=== PATIENT | female | born 2005 | race Caucasian/White ===

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

== ENCOUNTER 2023-05-25 20:34 | Inpatient (IN) | payer MEDICAID, OTHER ==
[2023-05-25] MEDS ORDERED: ONDANSETRON 4 MG/2 ML VIAL IVP STA (20:54)
[2023-05-25] MEDS ORDERED: SODIUM CHLORIDE 0.9% 1,000 ML IV STA ×2 (20:54→22:08)
[2023-05-25 21:18] LABS: Appearance,Urine Clear (Clear); Bilirubin,Urine Negative (Negative); Blood,Urine Negative (Negative); Color,Urine Light Yellow; Glucose,Urine (UA) Negative (Negative); Ketones,Urine 1+ (Negative); Leukocyte Esterase,Urine Negative (Negative); Nitrite,Urine Negative (Negative); PH, Urine 5.5 (5.0-8.0); Protein,Urine Negative (Negative); Specific Gravity,Urine 1.007 (1.001-1.035); Urobilinogen,Urine <2.0 mg/dL (<2.0)
[2023-05-25 21:46] LABS: Basophils % (A) 0 %; Eosinophils # (A) 0.2 k/uL (0-0.7); Eosinophils % (A) 2 %; HCT 42.4 % (34.0-46.0); HGB 14.3 gm/dL (11.4-16.0); Lymphocytes # (A) 1.3 k/uL (1.0-4.8); Lymphocytes % (A) 17 %; MCH 30.3 pg (25.0-35.0); MCHC 33.7 g/dL (31.0-37.0); MCV 89.8 fL (80.0-100.0); Monocytes # (A) 0.4 k/uL (0-1.0); Monocytes % (A) 5 %; Neutrophils # (A) 5.8 k/uL (1.3-7.7); Neutrophils % (A) 74 %; Platelet Count 244 k/uL (150-450); RBC 4.73 m/uL (3.80-5.40); RDW 13.1 % (11.5-15.5); WBC 7.8 k/uL (4.0-11.0)
--- NOTE | 2023-05-25 21:48 | ED ---
Psych HPI - General Chief Complaint: Psychiatric Symptoms Stated Complaint: Mental Health Time Seen by Provider: 05/25/23 20:36 Source: patient, police, EMS Mode of arrival: EMS - History of Present Illness Initial Comments: Patient is a 17-year-old female who presents the emergency department for suicide attempts. Patient took 24 of her 2 mg Abilify pills around 7:30 PM. States she "just wants someone to care." She also drank a couple shots of Bacardi. She denies other drug use. She denies homicidal ideation. Denies visual or auditory hallucinations. Patient feels nauseous no vomiting. No abdominal pain. No chest pain or shortness of breath. - Related Data Home Medications Medication Instructions Recorded Confirmed ARIPiprazole [Abilify] 2 mg PO DAILY 03/31/22 05/26/23 Cholecalciferol [Vitamin D3 (25 25 mcg PO DAILY 05/25/23 05/26/23 Mcg = 1000 Iu)] Nitrofurantoin Monohyd/M-Cryst 100 mg PO Q12HR 05/25/23 05/26/23 [Macrobid] norethindrone-e.estradioL-iron 1 tab PO DAILY 05/25/23 05/26/23 [Junel Fe 24 Tablet] Allergies Allergy/AdvReac Type Severity Reaction Status Date / Time lamotrigine [From Lamictal] Allergy Swelling Verified 05/26/23 07:12 sertraline [From Zoloft] Allergy Swelling Verified 05/26/23 07:12 Review of Systems ROS Statement: Those systems with pertinent positive or pertinent negative responses have been documented in the HPI. ROS Other: All systems not noted in ROS Statement are negative. Past Medical History Past Medical History: No Reported History History of Any Multi-Drug Resistant Organisms: None Reported Past Surgical History: Section Past Anesthesia/Blood Transfusion Reactions: No Reported Reaction Past Psychological History: Anxiety, Depression Smoking Status: Former smoker Past Alcohol Use History: Occasional Past Drug Use History: None Reported - Past Family History Mother Family Medical History: No Reported History General Exam Limitations: no limitations General appearance: alert, in no apparent distress Respiratory exam: Present: normal lung sounds bilaterally. Absent: respiratory distress, wheezes, rales, rhonchi, stridor Cardiovascular Exam: Present: regular rate, normal rhythm, normal heart sounds. Absent: systolic murmur, diastolic murmur, rubs, gallop, clicks GI/Abdominal exam: Present: soft, normal bowel sounds. Absent: distended, tenderness, guarding, rebound, rigid Neurological exam: Present: alert Psychiatric exam: Present: normal affect, normal mood Skin exam: Present: warm, dry, intact, normal color. Absent: rash Course Vital Signs 05/25/23 05/25/23 05/26/23 20:43 22:58 00:00 Temperature 98.8 F Pulse Rate 88 66 54 L Respiratory 19 17 17 Rate Blood Pressure 157/69 127/79 O2 Sat by Pulse 99 Oximetry 05/26/23 05/26/23 05/26/23 01:00 02:07 04:00 Temperature Pulse Rate 68 Respiratory 17 17 17 Rate Blood Pressure O2 Sat by Pulse Oximetry 05/26/23 05/26/23 05/26/23 04:20 05:30 06:34 Temperature Pulse Rate 67 103 H 68 Respiratory 17 19 Rate Blood Pressure O2 Sat by Pulse Oximetry 05/26/23 05/26/23 06:49 09:00 Temperature 98 F Pulse Rate 64 82 Respiratory 17 18 Rate Blood Pressure 116/56 102/60 O2 Sat by Pulse 96 96 Oximetry Medical Decision Making - Medical Decision Making EKG taken at 20:55, interpreted by myself Sinus rhythm Ventricular rate 79, NV interval 133, QRS duration 94, QTC 374 Was pt. sent in by a medical professional or institution ([facility] Girard, [employer] CONSERVATOR, urgent care, hospital, or detention...) When possible be specific @ -No Did you speak to anyone other than the patient for history (EMS, parent, family, police, friend...)? What history was obtained from this source @ -No Did you review nursing and triage notes (agree or disagree)? Why? @ -I reviewed and agree with nursing and triage notes Were old charts reviewed (outside hosp., previous admission, EMS record, old EKG, old radiological studies, urgent care reports/EKG's, detention records)? Report findings @ -No old charts were reviewed Differential Diagnosis (chest pain, altered mental status, abdominal pain women, abdominal pain men, vaginal bleeding, weakness, fever, dyspnea, syncope, headache, dizziness, GI bleed, back pain, seizure, CVA, palpatations, mental health)? @ -Differential Mental Health Depression, anxiety, bipolar, psychosis, schizophrenia, borderline personality, situational depression, adjustment disorder, behavioral disorder, brain tumor, malingering, substance abuse, encephalopathy, medication reaction, dementia, hypothyroidism, degenerative neurologic disorder, lupus.... This is not meant to be all-inclusive list EKG interpreted by me (3pts min.). @ -As above X-rays interpreted by me (1pt min.). @ -None done CT interpreted by me (1pt min.). @ -None done U/S interpreted by me (1pt. min.). @ -None done What testing was considered but not performed or refused? (CT, X-rays, U/S, labs)? Why? @ -None What meds were considered but not given or refused? Why? @ -None Did you discuss the management of the patient with other professionals (roz ramires ibeba Girard, PA, [employer] CON[employer], lab, RT, psych nurse, social insurance specialist, patient transition specialist, teacher, medical officer, piano case maker)? Give summary @ -No Was smoking cessation discussed for >3mins.? @ -No Was critical care preformed (if so, how long)? @ -No Were there social determinants of health that impacted care today? How? (Homelessness, low income, unemployed, alcoholism, drug addiction, transportation, low edu. Level, literacy, decrease access to med. care, penitentiary, rehab)? @ -No Was there de-escalation of care discussed even if they declined (Discuss DNR or withdrawal of care, Hospice)? DNR status @ -No What co-morbidities impacted this encounter? (DM, HTN, Smoking, COPD, CAD, Cancer, CVA, ARF, Chemo, Hep., AIDS, mental health diagnosis, sleep apnea, morbid obesity)? @ -None Was patient admitted / discharged? Hospital course, mention meds given and route, prescriptions, significant lab abnormalities, going to OR and other pertinent info. @ -Patient presenting for suicide attempt with Abilify. Patient is nontoxic appearing, vitals stable. Labs remarkable for mild anion gap acidosis, bicarbonate 17, anion gap 15, likely related to dehydration. Urinalysis shows 1+ ketones. Serum alcohol is 13. Patient given Zofran IV fluids. Discussed case with poison control-will monitor for tachycardia, hypotension, GI upset, psychosis. Patient evaluated by EPS in traveling clerk if she is medically stable. Patient evaluated by EPS and admitted. Undiagnosed new problem with uncertain prognosis? @ -No Drug Therapy requiring intensive monitoring for toxicity (Heparin, Nitro, Insulin, Cardizem)? @ -No Were any procedures done? @ -No Diagnosis/symptom? @ -suicide attempt, overdose Acute, or Chronic, or Acute on Chronic? @ -acute Uncomplicated (without systemic symptoms) or Complicated (systemic symptoms)? @ -uncomplicated Side effects of treatment? @ -No Exacerbation, Progression, or Severe Exacerbation? @ -No Poses a threat to life or bodily function? How? (Chest pain, [place], [place], pneumonia, PE, COPD, DKA, ARF, appy, cholecystitis, CVA, Diverticulitis, Homicidal, Suicidal, threat to staff... and all critical care pts) @ -No Dr. Foster is my attending - Lab Data Result diagrams: 05/25/23 20:53 05/25/23 20:53 Lab Results 05/25/23 05/25/23 05/25/23 Range/Units 20:53 20:53 20:53 WBC 7.8 (4.0-11.0) k/uL RBC 4.73 (3.80-5.40) m/uL Hgb 14.3 (11.4-16.0) gm/dL Hct 42.4 (34.0-46.0) % MCV 89.8 (80.0-100.0) fL MCH 30.3 (25.0-35.0) pg MCHC 33.7 (31.0-37.0) g/dL RDW 13.1 (11.5-15.5) % Plt Count 244 (150-450) k/uL MPV 8.0 Neutrophils % 74 % Lymphocytes % 17 % Monocytes % 5 % Eosinophils % 2 % Basophils % 0 % Neutrophils # 5.8 (1.3-7.7) k/uL Lymphocytes # 1.3 (1.0-4.8) k/uL Monocytes # 0.4 (0-1.0) k/uL Eosinophils # 0.2 (0-0.7) k/uL Basophils # 0.0 (0-0.2) k/uL Sodium 138 (137-145) mmol/L Potassium 5.0 (3.5-5.1) mmol/L Chloride 106 (98-107) mmol/L Carbon Dioxide 17 L (22-30) mmol/L Anion Gap 15 mmol/L BUN 13 (7-17) mg/dL Creatinine 0.76 (0.52-1.04) mg/dL Est GFR (CKD-EPI)AfAm >90 (>60 ml/min/1.73 sqM) Est GFR (CKD-EPI)NonAf >90 (>60 ml/min/1.73 sqM) Glucose 97 (74-99) mg/dL Plasma Lactic Acid Federico 1.7 (0.7-2.0) mmol/L Calcium 9.7 (8.4-10.2) mg/dL Total Bilirubin 1.4 H (0.2-1.3) mg/dL AST 47 H (14-36) U/L ALT 42 H (4-34) U/L Alkaline Phosphatase 54 (38-126) U/L Total Protein 9.4 H (6.3-8.2) g/dL Albumin 4.9 (3.5-5.0) g/dL Urine Color Urine Appearance (Clear) Urine pH (5.0-8.0) Ur Specific [place] (1.001-1.035) Urine Protein (Negative) Urine Glucose (UA) (Negative) Urine Ketones (Negative) Urine Blood (Negative) Urine Nitrite (Negative) Urine Bilirubin (Negative) Urine Urobilinogen (<2.0) mg/dL Ur Leukocyte Esterase (Negative) Urine HCG, Qual (Not Detectd) Salicylates mg/dL Urine Opiates Screen (NotDetected) Ur Oxycodone Screen (NotDetected) Urine Methadone Screen (NotDetected) Ur Propoxyphene Screen (NotDetected) Acetaminophen ug/mL Ur Barbiturates Screen (NotDetected) U Tricyclic Antidepress (NotDetected) Ur Phencyclidine Scrn (NotDetected) Ur Amphetamines Screen (NotDetected) U Methamphetamines Scrn (NotDetected) U Benzodiazepines Scrn (NotDetected) Urine Cocaine Screen (NotDetected) U Marijuana (THC) Screen (NotDetected) Serum Alcohol 13 mg/dL Coronavirus (PCR) (Not Detectd) 05/25/23 05/25/23 05/25/23 Range/Units 20:53 21:03 21:03 WBC (4.0-11.0) k/uL RBC (3.80-5.40) m/uL Hgb (11.4-16.0) gm/dL Hct (34.0-46.0) % MCV (80.0-100.0) fL MCH (25.0-35.0) pg MCHC (31.0-37.0) g/dL RDW (11.5-15.5) % Plt Count (150-450) k/uL MPV Neutrophils % % Lymphocytes % % Monocytes % % Eosinophils % % Basophils % % Neutrophils # (1.3-7.7) k/uL Lymphocytes # (1.0-4.8) k/uL Monocytes # (0-1.0) k/uL Eosinophils # (0-0.7) k/uL Basophils # (0-0.2) k/uL Sodium (137-145) mmol/L Potassium (3.5-5.1) mmol/L Chloride (98-107) mmol/L Carbon Dioxide (22-30) mmol/L Anion Gap mmol/L BUN (7-17) mg/dL Creatinine (0.52-1.04) mg/dL Est GFR (CKD-EPI)AfAm (>60 ml/min/1.73 sqM) Est GFR (CKD-EPI)NonAf (>60 ml/min/1.73 sqM) Glucose (74-99) mg/dL Plasma Lactic Acid Fedeirco (0.7-2.0) mmol/L Calcium (8.4-10.2) mg/dL Total Bilirubin (0.2-1.3) mg/dL AST (14-36) U/L ALT (4-34) U/L Alkaline Phosphatase (38-126) U/L Total Protein (6.3-8.2) g/dL Albumin (3.5-5.0) g/dL Urine Color Light Yellow Urine Appearance Clear (Clear) Urine pH 5.5 (5.0-8.0) Ur Specific [place] 1.007 (1.001-1.035) Urine Protein Negative (Negative) Urine Glucose (UA) Negative (Negative) Urine Ketones 1+ H (Negative) Urine Blood Negative (Negative) Urine Nitrite Negative (Negative) Urine Bilirubin Negative (Negative) Urine Urobilinogen <2.0 (<2.0) mg/dL Ur Leukocyte Esterase Negative (Negative) Urine HCG, Qual Not Detected (Not Detectd) Salicylates <1.0 mg/dL Urine Opiates Screen Not Detected (NotDetected) Ur Oxycodone Screen Not Detected (NotDetected) Urine Methadone Screen Not Detected (NotDetected) Ur Propoxyphene Screen Not Detected (NotDetected) Acetaminophen <10.0 ug/mL Ur Barbiturates Screen Not Detected (NotDetected) U Tricyclic Antidepress Not Detected (NotDetected) Ur Phencyclidine Scrn Not Detected (NotDetected) Ur Amphetamines Screen Not Detected (NotDetected) U Methamphetamines Scrn Not Detected (NotDetected) U Benzodiazepines Scrn Not Detected (NotDetected) Urine Cocaine Screen Not Detected (NotDetected) U Marijuana (THC) Screen Detected H (NotDetected) Serum Alcohol mg/dL Coronavirus (PCR) (Not Detectd) 05/26/23 Range/Units 06:34 WBC (4.0-11.0) k/uL RBC (3.80-5.40) m/uL Hgb (11.4-16.0) gm/dL Hct (34.0-46.0) % MCV (80.0-100.0) fL MCH (25.0-35.0) pg MCHC (31.0-37.0) g/dL RDW (11.5-15.5) % Plt Count (150-450) k/uL MPV Neutrophils % % Lymphocytes % % Monocytes % % Eosinophils % % Basophils % % Neutrophils # (1.3-7.7) k/uL Lymphocytes # (1.0-4.8) k/uL Monocytes # (0-1.0) k/uL Eosinophils # (0-0.7) k/uL Basophils # (0-0.2) k/uL Sodium (137-145) mmol/L Potassium (3.5-5.1) mmol/L Chloride (98-107) mmol/L Carbon Dioxide (22-30) mmol/L Anion Gap mmol/L BUN (7-17) mg/dL Creatinine (0.52-1.04) mg/dL Est GFR (CKD-EPI)AfAm (>60 ml/min/1.73 sqM) Est GFR (CKD-EPI)NonAf (>60 ml/min/1.73 sqM) Glucose (74-99) mg/dL Plasma Lactic Acid Federico (0.7-2.0) mmol/L Calcium (8.4-10.2) mg/dL Total Bilirubin (0.2-1.3) mg/dL AST (14-36) U/L ALT (4-34) U/L Alkaline Phosphatase (38-126) U/L Total Protein (6.3-8.2) g/dL Albumin (3.5-5.0) g/dL Urine Color Urine Appearance (Clear) Urine pH (5.0-8.0) Ur Specific [place] (1.001-1.035) Urine Protein (Negative) Urine Glucose (UA) (Negative) Urine Ketones (Negative) Urine Blood (Negative) Urine Nitrite (Negative) Urine Bilirubin (Negative) Urine Urobilinogen (<2.0) mg/dL Ur Leukocyte Esterase (Negative) Urine HCG, Qual (Not Detectd) Salicylates mg/dL Urine Opiates Screen (NotDetected) Ur Oxycodone Screen (NotDetected) Urine Methadone Screen (NotDetected) Ur Propoxyphene Screen (NotDetected) Acetaminophen ug/mL Ur Barbiturates Screen (NotDetected) U Tricyclic Antidepress (NotDetected) Ur Phencyclidine Scrn (NotDetected) Ur Amphetamines Screen (NotDetected) U Methamphetamines Scrn (NotDetected) U Benzodiazepines Scrn (NotDetected) Urine Cocaine Screen (NotDetected) U Marijuana (THC) Screen (NotDetected) Serum Alcohol mg/dL Coronavirus (PCR) Not Detected (Not Detectd) Disposition Clinical Impression: Attempted suicide, Overdose Disposition: TRANSFER TO PSYCH HOSP/UNIT Condition: Fair
[2023-05-25 21:52] LABS: Amphetamine Screen,Urine Not Detected (NotDetected); Barbiturate Screen,Urine Not Detected (NotDetected); Benzodiazepines Screen,Urine Not Detected (NotDetected); Cocaine Screen,Urine Not Detected (NotDetected); Methadone Screen, Urine Not Detected (NotDetected); Opiate Screen,Urine Not Detected (NotDetected); Oxycodone Screen, Urine Not Detected (NotDetected); Phencyclidine Screen,Urine Not Detected (NotDetected); Tricyclic Antidepressant,Urine Not Detected (NotDetected); Urn Cannabinoid Scrn Detected (NotDetected)
[2023-05-25 21:52] LABS: ALT 42 U/L (4-34); AST 47 U/L (14-36); African American GFR (CKD) >90 (>60 ml/min/1.73 sqM); Albumin 4.9 g/dL (3.5-5.0); Alcohol 13 mg/dL; Alkaline Phosphatase 54 U/L (38-126); Anion Gap 15 mmol/L; Blood Urea Nitrogen 13 mg/dL (7-17); Calcium 9.7 mg/dL (8.4-10.2); Carbon Dioxide 17 mmol/L (22-30); Chloride 106 mmol/L (98-107); Glucose 97 mg/dL (74-99); Non-African American GFR(CKD) >90 (>60 ml/min/1.73 sqM); Sodium 138 mmol/L (137-145); Total Bilirubin 1.4 mg/dL (0.2-1.3); Total Protein 9.4 g/dL (6.3-8.2)
[2023-05-25 23:14] LABS: Acetaminophen <10.0 ug/mL; Salicylate <1.0 mg/dL
[2023-05-26] MEDS ORDERED: ONDANSETRON 4 MG/2 ML VIAL IVP STA (02:02)
[2023-05-26] MEDS ORDERED: hydrOXYzine HCL 50 MG/ML 1 ML VIAL IM PRN (07:06)
[2023-05-26] MEDS ORDERED: MAG HYDROX/AL HYDROX/SIMETH 30 ML CUP PO PRN (07:06)
[2023-05-26] MEDS ORDERED: MAGNESIUM HYDROXIDE 2,400 MG/30 ML CUP PO PRN (07:06)
[2023-05-26] MEDS ORDERED: ACETAMINOPHEN TAB 325 MG TAB PO PRN (07:06)
[2023-05-26] MEDS: NICOTINE 7MG/24HR PATCH TRANSDERM SCH (09:58)
[2023-05-26] MEDS ORDERED: OLANZapine 10 MG VIAL IM PRN (12:10)
[2023-05-26] MEDS ORDERED: OLANZapine 5 MG TAB PO PRN (12:10)
--- NOTE | 2023-05-26 12:11 | P.HP ---
Psychiatric H&P - . H&P Date: 05/26/23 History & Physical: Allergies Allergy/AdvReac Type Severity Reaction Status Date / Time lamotrigine From Lamictal Allergy Swelling Verified 05/26/23 07:12 sertraline From Zoloft Allergy Swelling Verified 05/26/23 07:12 Vital Signs Temp 96.9 F L 05/26/23 09:27 Pulse 70 05/26/23 09:27 Resp 16 05/26/23 09:27 BP 121/69 05/26/23 09:27 Pulse Ox 99 05/26/23 09:27 FiO2 Intake & Output 05/25/23 05/26/23 05/26/23 18:59 06:59 18:59 Weight 63.503 kg 69.082 kg Laboratory Last Values WBC 7.8 k/uL (4.0-11.0) 05/25/23 20:53 RBC 4.73 m/uL (3.80-5.40) 05/25/23 20:53 Hgb 14.3 gm/dL (11.4-16.0) 05/25/23 20:53 Hct 42.4 % (34.0-46.0) 05/25/23 20:53 MCV 89.8 fL (80.0-100.0) 05/25/23 20:53 MCH 30.3 pg (25.0-35.0) 05/25/23 20:53 MCHC 33.7 g/dL (31.0-37.0) 05/25/23 20:53 RDW 13.1 % (11.5-15.5) 05/25/23 20:53 Plt Count 244 k/uL (150-450) 05/25/23 20:53 MPV 8.0 05/25/23 20:53 Neutrophils % 74 % 05/25/23 20:53 Lymphocytes % 17 % 05/25/23 20:53 Monocytes % 5 % 05/25/23 20:53 Eosinophils % 2 % 05/25/23 20:53 Basophils % 0 % 05/25/23 20:53 Neutrophils # 5.8 k/uL (1.3-7.7) 05/25/23 20:53 Lymphocytes # 1.3 k/uL (1.0-4.8) 05/25/23 20:53 Monocytes # 0.4 k/uL (0-1.0) 05/25/23 20:53 Eosinophils # 0.2 k/uL (0-0.7) 05/25/23 20:53 Basophils # 0.0 k/uL (0-0.2) 05/25/23 20:53 Sodium 138 mmol/L (137-145) 05/25/23 20:53 Potassium 5.0 mmol/L (3.5-5.1) 05/25/23 20:53 Chloride 106 mmol/L (98-107) 05/25/23 20:53 Carbon Dioxide 17 mmol/L (22-30) L 05/25/23 20:53 Anion Gap 15 mmol/L 05/25/23 20:53 BUN 13 mg/dL (7-17) 05/25/23 20:53 Creatinine 0.76 mg/dL (0.52-1.04) 05/25/23 20:53 Est GFR (CKD-EPI)AfAm >90 (>60 ml/min/1.73 sqM) 05/25/23 20:53 Est GFR (CKD-EPI)NonAf >90 (>60 ml/min/1.73 sqM) 05/25/23 20:53 Glucose 97 mg/dL (74-99) 05/25/23 20:53 Plasma Lactic Acid Federico 1.7 mmol/L (0.7-2.0) 05/25/23 20:53 Calcium 9.7 mg/dL (8.4-10.2) 05/25/23 20:53 Total Bilirubin 1.4 mg/dL (0.2-1.3) H 05/25/23 20:53 AST 47 U/L (14-36) H 05/25/23 20:53 ALT 42 U/L (4-34) H 05/25/23 20:53 Alkaline Phosphatase 54 U/L (38-126) 05/25/23 20:53 Total Protein 9.4 g/dL (6.3-8.2) H 05/25/23 20:53 Albumin 4.9 g/dL (3.5-5.0) 05/25/23 20:53 Urine Color Light Yellow 05/25/23 21:03 Urine Appearance Clear (Clear) 05/25/23 21:03 Urine pH 5.5 (5.0-8.0) 05/25/23 21:03 Ur Specific Alderson 1.007 (1.001-1.035) 05/25/23 21:03 Urine Protein Negative (Negative) 05/25/23 21:03 Urine Glucose (UA) Negative (Negative) 05/25/23 21:03 Urine Ketones 1+ (Negative) H 05/25/23 21:03 Urine Blood Negative (Negative) 05/25/23 21:03 Urine Nitrite Negative (Negative) 05/25/23 21:03 Urine Bilirubin Negative (Negative) 05/25/23 21:03 Urine Urobilinogen <2.0 mg/dL (<2.0) 05/25/23 21:03 Ur Leukocyte Esterase Negative (Negative) 05/25/23 21:03 Urine HCG, Qual Not Detected (Not Detectd) 05/25/23 21:03 Salicylates <1.0 mg/dL 05/25/23 20:53 Urine Opiates Screen Not Detected (NotDetected) 05/25/23 21:03 Ur Oxycodone Screen Not Detected (NotDetected) 05/25/23 21:03 Urine Methadone Screen Not Detected (NotDetected) 05/25/23 21:03 Ur Propoxyphene Screen Not Detected (NotDetected) 05/25/23 21:03 Acetaminophen <10.0 ug/mL 05/25/23 20:53 Ur Barbiturates Screen Not Detected (NotDetected) 05/25/23 21:03 U Tricyclic Antidepress Not Detected (NotDetected) 05/25/23 21:03 Ur Phencyclidine Scrn Not Detected (NotDetected) 05/25/23 21:03 Ur Amphetamines Screen Not Detected (NotDetected) 05/25/23 21:03 U Methamphetamines Scrn Not Detected (NotDetected) 05/25/23 21:03 U Benzodiazepines Scrn Not Detected (NotDetected) 05/25/23 21:03 Urine Cocaine Screen Not Detected (NotDetected) 05/25/23 21:03 U Marijuana (THC) Screen Detected (NotDetected) H 05/25/23 21:03 Serum Alcohol 13 mg/dL 05/25/23 20:53 Coronavirus (PCR) Not Detected (Not Detectd) 05/26/23 06:34 05/26/23 11:49 IDENTIFYING DATA: Patient is a 17-year-old female currently has 2 kids, lives with her mother and sister in a house, she is unemployed HPI: Patient presented to the hospital yesterday and was evaluated in the ER after a suicide attempt after an overdose, patient apparently took 24 tablets of her 2 mg Abilify pills at 7:30 PM yesterday. Patient also endorsed drinking shots of alcohol afterwards. Her AST and ALT were mildly elevated, UDS is positive for THC. [facility] writer. She appeared to be fairly depressed and her affect, was reporting anxiety as well. She states that she felt that she was hopeless and worthless. She claims that "nobody cared about me anymore" and states that nobody wants her. She states that she broke up with her boyfriend about 13 days ago as she was arguing a lot with him and there were trying to fix things. She states that she has been lonely since then. Claims that after she overdosed in her home she drank pop and alcohol and "sat there" she states that she detected people in her family and also friends and claims that her mother found her in the bathroom and called 911. She states that her sleep has been poor about 6 hours night, states that her appetite is been on and off. Patient denies any current suicidal or homicidal ideations intent or plan. At this time patient denies any auditory or visual hallucinations. Patient denies any flight of ideas racing thoughts and increased in goal directed behavior. Patient admits to using marijuana daily, cigarettes daily. PAST PSYCHIATRIC HISTORY: Patient states that she has a history of anxiety and a mood disorder. Patient is currently on Abilify 2 mg daily. Patient states that she was previously on Lamictal and Zoloft however had bad reactions to them. Claims that she was hospitalized previously [facility] when she was about 13 years old. Patient denies any psychiatric outpatient follow-up. Claims that she has 2 previous suicide attempts one where she held a knife to her throat and also a previous time when she overdosed. Past Medical History: No Reported History History of Any Multi-Drug Resistant Organisms: None Reported Past Surgical History: Section Past Anesthesia/Blood Transfusion Reactions: No Reported Reaction Past Psychological History: Anxiety, Depression Smoking Status: Former smoker Past Alcohol Use History: Occasional Past Drug Use History: None Reported ALLERGIES: as per EMR CHEMICAL DEPENDENCY HISTORY: as per HPI FAMILY PSYCHIATRIC/SUBSTANCE USE HISTORY: She claims that several family members have mental health problems however did not specify. SOCIAL HISTORY: Patient was born and raised in [facility], she claims that she completed her GED, she is currently unemployed. States that she has 2 kids, lives with her mother and also sister in a house. She states that she is not having any legal history. MENTAL STATUS EXAM: General Appearance: Patient appears to be stated age is alert, directable, and attempts to cooperate. Poor eye contact. Patient appears to have fair hygiene and grooming. Behavior: Patient is seated without any agitated behavior. Timid. Speech: Patient's speech is fluent and nonpressured. Soft tone. Mood/Affect: Patient reports their mood is depressed and anxious, affect is congruent and constricted. Suicidality/Homicidality: Patient denies having any homicidal ideation intent or plan. Denies any suicidal ideations intent or plan Perceptions: Patient denies any visual hallucinations and denies any auditory hallucinations Though content/process: There is no evidence of any delusional thought content and thought process is linear and goal-directed. Focused on her stressors Memory and concentration: AOX3, grossly intact for the purposes of this session. Can spell "WORLD" backwards Judgment and insight: poor STRENGTHS/WEAKNESSES: strength is that patient is resilient. Weakness is that patient has poor judgment and is impulsive INTELLECT: average IMPRESSIONS: Suicide attempt after an overdose of medications Depressive disorder NOS borderline personality disorder cannabis use disorder nicotine dependence PLAN: -Patient is admitted under voluntary status to MHU for stabilization of psychiatric symptoms and safety. Patient has signed adult voluntary form and medication consent and is placed in patient's chart. -Medications : Will start patient on Cymbalta 20 mg daily for mood/anxiety, lithium 150 mg twice a day for mood stabilization/suicidal thoughts. -Zyprexa and Vistaril PRN for agitation/aggression -Patient was counselled on substance abuse and desired to cut back on use -Patient was informed of the risks, benefits and side effects of the medication and patient verbally consented to taking the medications. Patient signed med consent form and was placed in chart. -Internal Medicine consult to perform medical evaluation and physical. -NRT - nicotine patch -SW on board for discharge planning. Encourage patient to participate in groups to work on coping skills. 05/26/23 12:04
[2023-05-26] MEDS: CHOLECALCIFEROL 25 MCG (1000 IU) TABLET PO SCH (12:30)
[2023-05-26] MEDS: DULoxetine HCL 20 MG CAPSULE.DR PO SCH (12:30)
[2023-05-26] MEDS: NITROFURANTOIN MONOHYD/M-CRYST 100 MG CAP PO SCH ×2 (12:30→21:05)
[2023-05-26] MEDS: LITHIUM CARBONATE 150 MG CAP PO SCH ×2 (12:30→21:04)
--- NOTE | 2023-05-26 13:15 | P.MDCNMH ---
History of Present Illness H&P Date: 05/26/23 History of present illness; patient is a 17-year-old lady with past medical hist ory significant for depression presents to ER after a suicidal attempt. Patient tried to end her life by taking 24 tablets of 2 mg of Abilify. Patient a lot of social stressors at home. Denied any auditory or visual hallucinations. Denies any homicidal thoughts. Because of this patient was brought to the ER Initial lab work done in the ER showed WBC 7.8, hemoglobin 40.3, platelet count 244, sodium 1:30, potassium 5, total bilirubin 1.4, AST 47, ALT 42 UA negative for infection Urine drug screen positive for marijuana Patient was admitted to psychiatry service REVIEW OF SYSTEMS: CONSTITUTIONAL: No fever, no malaise, no fatigue. HEENT: No recent visual problems or hearing problems. Denied any sore throat. CARDIOVASCULAR: No chest pain, orthopnea, PND, no palpitations, no syncope. PULMONARY: No shortness of breath, no cough, no hemoptysis. GASTROINTESTINAL: No diarrhea, no nausea, no vomiting, no abdominal pain. NEUROLOGICAL: No headaches, no weakness, no numbness. HEMATOLOGICAL: Denies any bleeding or petechiae. GENITOURINARY: Denies any burning micturition, frequency, or urgency. MUSCULOSKELETAL/RHEUMATOLOGICAL: Denies any joint pain, swelling, or any muscle pain. ENDOCRINE: Denies any polyuria or polydipsia. The rest of the 14-point review of systems is negative. PHYSICAL EXAMINATION: GENERAL: The patient is alert and oriented x3, not in any acute distress. Well developed, well nourished. HEENT: Pupils are round and equally reacting to light. EOMI. No scleral icterus. No conjunctival pallor. Normocephalic, atraumatic. No pharyngeal erythema. No thyromegaly. CARDIOVASCULAR: S1 and S2 present. No murmurs, rubs, or gallops. PULMONARY: Chest is clear to auscultation, no wheezing or crackles. ABDOMEN: Soft, nontender, nondistended, normoactive bowel sounds. No palpable organomegaly. MUSCULOSKELETAL: No joint swelling or deformity. EXTREMITIES: No cyanosis, clubbing, or pedal edema. NEUROLOGICAL: Gross neurological examination did not reveal any focal deficits. SKIN: No rashes. Assessment and plan Suicidal attempt Major depression Borderline personality disorder Cannabis use Elevated LFTs Monitor vital signs Monitor CBC Monitor CMP Trend LFTs Ordered TSH Resume home meds Continue psych meds per psychiatry Labs and medication were reviewed.. Continue same treatment. Continue with symptomatic treatment. Resume home medication. Monitor labs and vitals. DVT and GI prophylaxis. Further recommendations as per clinical course of the patient Dictation was produced using Ryan dictation software. please excuse any grammatical, word or spelling errors. Past Medical History Past Medical History: No Reported History History of Any Multi-Drug Resistant Organisms: None Reported Past Surgical History: Section Past Anesthesia/Blood Transfusion Reactions: No Reported Reaction Past Psychological History: Anxiety, Depression Smoking Status: Former smoker Past Alcohol Use History: Occasional Past Drug Use History: None Reported - Past Family History Mother Family Medical History: No Reported History Medications and Allergies Home Medications Medication Instructions Recorded Confirmed Type ARIPiprazole [Abilify] 2 mg PO DAILY 03/31/22 05/26/23 History Cholecalciferol [Vitamin D3 (25 25 mcg PO DAILY 05/25/23 05/26/23 History Mcg = 1000 Iu)] Nitrofurantoin Monohyd/M-Cryst 100 mg PO Q12HR 05/25/23 05/26/23 History [Macrobid] norethindrone-e.estradioL-iron 1 tab PO DAILY 05/25/23 05/26/23 History [Junel Fe 24 Tablet] Allergies Allergy/AdvReac Type Severity Reaction Status Date / Time lamotrigine [From Lamictal] Allergy Swelling Verified 05/26/23 07:12 sertraline [From Zoloft] Allergy Swelling Verified 05/26/23 07:12 Physical Exam Vitals: Vital Signs Temp Pulse Pulse Resp BP BP Pulse Ox 05/26/23 09:27 96.9 F L 70 16 121/69 99 05/26/23 09:00 98 F 82 18 102/60 96 05/26/23 06:49 64 17 116/56 96 05/26/23 06:34 68 05/26/23 05:30 103 H 19 05/26/23 04:20 67 17 05/26/23 04:00 17 05/26/23 02:07 68 17 05/26/23 01:00 17 05/26/23 00:00 54 L 17 05/25/23 22:58 66 17 127/79 99 05/25/23 20:43 98.8 F 88 19 157/69 Intake and Output 05/25/23 05/26/23 05/26/23 22:59 06:59 14:59 Other: Weight 63.503 kg 69.082 kg Cranial Nerve Examination - Cranial Nerves Cranial Nerve II- Optic: Intact (Cranial nerves II through XII intact) Cranial Nerve III- Oculomotor: Intact Cranial Nerve IV- Trochlear: Intact Cranial Nerve V- Trigeminal: Intact Cranial Nerve - Abducens: Intact Cranial Nerve VII- Facial: Intact Cranial Nerve VIII- Auditory: Intact Cranial Nerve IX- Glossopharyngeal: Intact Cranial Nerve X- Vagus: Intact Cranial Nerve XI- Accessory: Intact Cranial Nerve XII- Hypoglossal: Intact Results CBC & Chem 7: 05/25/23 20:53 05/25/23 20:53 Labs: Abnormal Lab Results - Last 24 Hours (Table) 05/25/23 05/25/23 Range/Units 20:53 21:03 Carbon Dioxide 17 L (22-30) mmol/L Total Bilirubin 1.4 H (0.2-1.3) mg/dL AST 47 H (14-36) U/L ALT 42 H (4-34) U/L Total Protein 9.4 H (6.3-8.2) g/dL Urine Ketones 1+ H (Negative) U Marijuana (THC) Screen Detected H (NotDetected)
[2023-05-26] MEDS: [UNRECOGNIZED DRUG - OTHER] PO SCH (17:31)
[2023-05-26] MEDS: JUNEL FE PO SCH (17:31)
[2023-05-27 07:19] LABS: ALT 35 U/L (4-34); AST 27 U/L (14-36); Albumin 4.5 g/dL (3.5-5.0); Alkaline Phosphatase 62 U/L (38-126); Bilirubin, Delta 0.2 mg/dL (0.0-0.2); Total Bilirubin 1.2 mg/dL (0.2-1.3); Total Protein 8.1 g/dL (6.3-8.2)
[2023-05-27] MEDS ORDERED: NON FORMULARY DRUG PO SCH (09:00)
[2023-05-27] MEDS: [UNRECOGNIZED DRUG - OTHER] PO SCH (09:08)
[2023-05-27] MEDS: JUNEL FE PO SCH (09:08)
[2023-05-27] MEDS: LITHIUM CARBONATE 150 MG CAP PO SCH ×2 (09:08→20:37)
[2023-05-27] MEDS: NICOTINE 7MG/24HR PATCH TRANSDERM SCH (09:08)
[2023-05-27] MEDS: CHOLECALCIFEROL 25 MCG (1000 IU) TABLET PO SCH (09:08)
[2023-05-27] MEDS: NITROFURANTOIN MONOHYD/M-CRYST 100 MG CAP PO SCH ×2 (09:09→20:37)
[2023-05-27] MEDS: DULoxetine HCL 20 MG CAPSULE.DR PO SCH (09:09)
--- NOTE | 2023-05-27 10:41 | P.PN ---
Progress Note - Text Progress Note Date: 05/27/23 (\) Interval history: Patient was seen today in group and was agreeable to speak to promotion writer in the office. Patient appears to have improvement in her hygiene and grooming today. She was more directable today during conversation. She states that she is doing a bit better with her medications and claims that she is tolerating them well. Denying any side effects at this time. She has been taking her medication and is compliant. She states that she has been going to group and finding them h elpful. She claims that her mood is mildly improving since yesterday along with her anxiety. We spoke about changing the medication to nighttime as patient was stating that she was feeling tired after taking the medication morning. She appeared to have improvement in her eye contact today. She is denying any suicidal or homicidal ideations intent or plan, denying any auditory or visual hallucinations. Mental status examination: General Appearance: Patient appears to be stated age is alert, directable, and attempts to cooperate. Improving eye contact. Patient appears to have fair hygiene and grooming. Behavior: Patient is seated without any agitated behavior. less Timid. Speech: Patient's speech is fluent and nonpressured. Soft tone. Mood/Affect: Patient reports their mood is depressed and anxious however improving mildly, affect is congruent. Suicidality/Homicidality: Patient denies having any homicidal ideation intent or plan. Denies any suicidal ideations intent or plan Perceptions: Patient denies any visual hallucinations and denies any auditory hallucinations Though content/process: There is no evidence of any delusional thought content and thought process is linear and goal-directed. Memory and concentration: AOX3, grossly intact for the purposes of this session Judgment and insight: poor, improving mildly IMPRESSIONS: Suicide attempt after an overdose of medications Depressive disorder NOS borderline personality disorder cannabis use disorder nicotine dependence PLAN: -Patient is admitted under voluntary status to [facility]HU for stabilization of psychiatric symptoms and safety. Patient has signed adult voluntary form and medication consent and is placed in patient's chart. -Medications : switched Cymbalta 30 mg qhs for mood/anxiety, lithium 150 mg twic e a day for mood stabilization/suicidal thoughts. -Zyprexa and Vistaril PRN for agitation/aggression -NRT - nicotine patch -SW on board for discharge planning. Encourage patient to participate in groups to work on coping skills. hopeful for discharge early next week if she continues to improve, possibly tuesday vs tuesday back home.
[2023-05-27 17:42] LABS: Chol/HDL Ratio 5.85 Ratio; LDL Cholesterol,Calculated 135.3 mg/dL (0.0-131.0)
[2023-05-27] MEDS: DULoxetine HCL 30 MG CAPSULE.DR PO SCH (20:37)
[2023-05-28] MEDS: hydrOXYzine HCL 25 MG TAB PO PRN (03:04)
[2023-05-28] MEDS: NITROFURANTOIN MONOHYD/M-CRYST 100 MG CAP PO SCH (08:43)
[2023-05-28] MEDS: NICOTINE 7MG/24HR PATCH TRANSDERM SCH (08:43)
[2023-05-28] MEDS: CHOLECALCIFEROL 25 MCG (1000 IU) TABLET PO SCH (08:43)
[2023-05-28] MEDS: LITHIUM CARBONATE 150 MG CAP PO SCH ×2 (08:43→20:57)
[2023-05-28] MEDS: [UNRECOGNIZED DRUG - OTHER] PO SCH (08:44)
[2023-05-28] MEDS: JUNEL FE PO SCH (08:44)
--- NOTE | 2023-05-28 12:31 | P.PN ---
Subjective Progress Note Date: 05/28/23 Principal diagnosis: IMPRESSIONS: Depressive disorder NOS suicide attempt borderline personality disorder cannabis use disorder nicotine dependence Patient Name: Anca Bear I Date of : [birth year] Patient Status: Inpatient Attending Provider: Danny Ortiz Date: 05/28/23 Follow-up by Dr. Brad Islas M.D. Interval history: Patient was seen today in her room where she was laying down comfortably in bed Denying any side effects at this time. She is denying any suicidal or homicidal ideations intent or plan, denying any auditory or visual hallucinations. When asked about her reasons for overdose patient stated that she does not want to discuss about it She also gives very vague answers and seemed to be avoidant and guarded or most likely due to not familiar with this editorial writer Mental status examination: General Appearance: Patient appears to be stated age is alert, directable, but guarded. Poor eye contact Patient appears to have fair hygiene and grooming. Behavior: Patient is laying down without any agitated behavior. Speech: Patient's speech is fluent and nonpressured. Soft tone. Mood/Affect: Patient reports their mood is fair affect is congruent. Suicidality/Homicidality: Patient denies having any homicidal ideation intent or plan. Denies any suicidal ideations intent or plan Perceptions: Patient denies any visual hallucinations and denies any auditory hallucinations Though content/process: There is no evidence of any delusional thought content and thought process is linear and goal-directed. Memory and concentration: AOX3, grossly intact for the purposes of this session Judgment and insight: poor, IMPRESSIONS: Suicide attempt after an overdose of medications Depressive disorder NOS borderline personality disorder cannabis use disorder nicotine dependence PLAN: -Patient is admitted under voluntary status to MHU for stabilization of psychiatric symptoms and safety. Patient has signed adult voluntary form and medication consent and is placed in patient's chart. -Medications : switched Cymbalta 30 mg qhs for mood/anxiety, lithium 150 mg twice a day for mood stabilization/suicidal thoughts. -Zyprexa and Vistaril PRN for agitation/aggression -NRT - nicotine patch -SW on board for discharge planning. Encourage patient to participate in groups to work on coping skills. hopeful for discharge early next week if she continues to improve, possibly juno vs tuesday back home. Brad Islas M.D. 05/28/2023 Objective - Vital Signs Vital signs: Vital Signs Temp 98.1 F 05/28/23 02:29 Pulse 60 05/28/23 02:29 Resp 16 05/28/23 02:29 BP 128/89 05/28/23 02:29 Pulse Ox 98 05/28/23 02:29 FiO2 - Labs CBC & Chem 7: 05/25/23 20:53 05/25/23 20:53 Labs: Abnormal Lab Results - Last 24 Hours (Table) 05/27/23 Range/Units 06:52 Triglycerides 165.00 H (0.00-149.00) mg/dL Cholesterol 203.00 H (0.00-200.00) mg/dL LDL Cholesterol, Calc 135.3 H (0.0-131.0) mg/dL HDL Cholesterol 34.70 L (40.00-60.00) mg/dL
[2023-05-28] MEDS: DULoxetine HCL 30 MG CAPSULE.DR PO SCH (20:57)
[2023-05-29] MEDS: hydrOXYzine HCL 25 MG TAB PO PRN ×2 (00:56→23:07)
[2023-05-29] MEDS: CHOLECALCIFEROL 25 MCG (1000 IU) TABLET PO SCH (08:27)
[2023-05-29] MEDS: JUNEL FE PO SCH (08:27)
[2023-05-29] MEDS: LITHIUM CARBONATE 150 MG CAP PO SCH ×2 (08:27→20:46)
[2023-05-29] MEDS: NICOTINE 7MG/24HR PATCH TRANSDERM SCH (08:27)
[2023-05-29] MEDS: [UNRECOGNIZED DRUG - OTHER] PO SCH (08:27)
--- NOTE | 2023-05-29 09:38 | P.PN ---
Subjective Progress Note Date: 05/29/23 Principal diagnosis: IMPRESSIONS: Depressive disorder NOS suicide attempt borderline personality disorder cannabis use disorder nicotine dependence Patient Name: Anca Bear I Date of : [birth year] Patient Status: Inpatient Attending Provider: Danny Ortiz Date: 05/29/23 Follow-up by Dr. Brad Islas M.D. Interval history: The patient was seen in the group room We talked about her last name and her family roots where she reported that she is part [place], [place] and Spanish Patient reports that she has been several suicide attempts in the past where she gets stressed and is unable to think clearly She states that she was getting psychiatric help until she turned 16 and then was not covered by her insurance as well as with that therapist and had to switch to an adult therapist which she never followed through She admits that she needs to strengthen her coping skills She states that she slept better and that she is feeling better She denies that she is having any suicidal thoughts or plans Mental status examination: General Appearance: Patient appears to be stated age is alert, directable, but guarded. Poor eye contact Patient appears to have fair hygiene and grooming. Behavior: Patient is laying down without any agitated behavior. Speech: Patient's speech is fluent and nonpressured. Soft tone. Mood/Affect: Patient reports their mood is fair affect is congruent. Suicidality/Homicidality: Patient denies having any homicidal ideation intent or plan. Denies any suicidal ideations intent or plan Perceptions: Patient denies any visual hallucinations and denies any auditory hallucinations Though content/process: There is no evidence of any delusional thought content and thought process is linear and goal-directed. Memory and concentration: AOX3, grossly intact for the purposes of this session Judgment and insight: poor, IMPRESSIONS: Suicide attempt after an overdose of medications Depressive disorder NOS borderline personality disorder cannabis use disorder nicotine dependence PLAN: -Patient is admitted under voluntary status to [facility] for stabilization of psychiatric symptoms and safety. Patient has signed adult voluntary form and medication consent and is placed in patient's chart. -Medications : switched Cymbalta 30 mg qhs for mood/anxiety, lithium 150 mg twice a day for mood stabilization/suicidal thoughts. -Zyprexa and Vistaril PRN for agitation/aggression -NRT - nicotine patch -SW on board for discharge planning. Encourage patient to participate in groups to work on coping skills. hopeful for discharge early next week if she continues to improve, possibly tuesday vs tuesday back home. Brad Islas M.D. 05/29/2023 Objective - Vital Signs Vital signs: Vital Signs Temp 98.1 F 05/29/23 06:07 Pulse 60 05/29/23 06:07 Resp 18 05/29/23 06:07 BP 151/68 05/29/23 06:07 Pulse Ox 98 05/29/23 06:07 FiO2 - Labs CBC & Chem 7: 05/25/23 20:53 05/25/23 20:53
[2023-05-29] MEDS: DULoxetine HCL 30 MG CAPSULE.DR PO SCH (20:46)
[2023-05-30] MEDS: NICOTINE 7MG/24HR PATCH TRANSDERM SCH (05:58)
[2023-05-30] MEDS: hydrOXYzine HCL 25 MG TAB PO PRN ×2 (06:10→22:36)
[2023-05-30] MEDS: CHOLECALCIFEROL 25 MCG (1000 IU) TABLET PO SCH (08:55)
[2023-05-30] MEDS: JUNEL FE PO SCH (08:55)
[2023-05-30] MEDS: [UNRECOGNIZED DRUG - OTHER] PO SCH (08:55)
[2023-05-30] MEDS: LITHIUM CARBONATE 150 MG CAP PO SCH ×2 (08:55→20:30)
--- NOTE | 2023-05-30 12:17 | P.PN ---
Progress Note - Text Progress Note Date: 05/30/23 Interval history: Patient was seen lying in bed today and appeared to be somewhat lethargic. She claims that she is feeling very tired. She claims that she woke up very angry this morning and asked for more medications however did not know what she took. She states that her anxiety has been "bad" and states that she would like it to be reviewed and other medications. States that her mood is improving mildly at this time. States that she is trying to go to groups. Claims that she had no overnight events. She spoke about discharge planning and asked appropriate questions. She did not appear to have an irritable tone. She is denying any suicidal or homicidal ideations intent or plan, denying any auditory or visual hallucinations. Mental status examination: General Appearance: Patient appears to be stated age is alert, directable, and attempts to cooperate. Improving eye contact. Patient appears to have fair hygiene and grooming. Behavior: Patient is seated without any agitated behavior. Appears to be tired today. Cooperative. Speech: Patient's speech is fluent and nonpressured. Soft tone. Mood/Affect: Patient reports their mood is improving mildly, affect is congruent and constricted Suicidality/Homicidality: Patient denies having any homicidal ideation intent or plan. Denies any suicidal ideations intent or plan Perceptions: Patient denies any visual hallucinations and denies any auditory hallucinations Though content/process: There is no evidence of any delusional thought content and thought process is linear and goal-directed. Focus on her medications. Memory and concentration: AOX3, grossly intact for the purposes of this session Judgment and insight: poor, improving mildly IMPRESSIONS: Suicide attempt after an overdose of medications Depressive disorder NOS borderline personality disorder cannabis use disorder nicotine dependence PLAN: -Patient is admitted under voluntary status to [facility]HU for stabilization of psychiatric symptoms and safety. Patient has signed adult voluntary form and medication consent and is placed in patient's chart. -Medications : increase Cymbalta 30 mg BID for mood/anxiety, lithium 150 mg twice a day for mood stabilization/suicidal thoughts. -Zyprexa and Vistaril PRN for agitation/aggression -NRT - nicotine patch -SW on board for discharge planning. Encourage patient to participate in groups to work on coping skills. hopeful for discharge back home likely in 1-2 days once patient improves more psychaitrically.
[2023-05-30] MEDS: DULoxetine HCL 30 MG CAPSULE.DR PO SCH (20:30)
[2023-05-31] MEDS: NICOTINE 7MG/24HR PATCH TRANSDERM SCH (04:39)
[2023-05-31 06:07] VITALS: TEMP 97.1
[2023-05-31] MEDS: DULoxetine HCL 30 MG CAPSULE.DR PO SCH ×2 (09:04→21:57)
[2023-05-31] MEDS: CHOLECALCIFEROL 25 MCG (1000 IU) TABLET PO SCH (09:04)
[2023-05-31] MEDS: JUNEL FE PO SCH (09:04)
[2023-05-31] MEDS: LITHIUM CARBONATE 150 MG CAP PO SCH ×2 (09:04→21:58)
[2023-05-31] MEDS: [UNRECOGNIZED DRUG - OTHER] PO SCH (09:04)
--- NOTE | 2023-05-31 09:35 | P.PN ---
Progress Note - Text Progress Note Date: 05/31/23 Interval history: Patient was seen in her bed today and appeared to be more awake, hygiene and g rooming improving. She states that she is able to sleep better last night taking the Atarax and wanted to schedule. States that she is feeling better today with regards to her mood and anxiety. States that she feels less labile in her emotions. In that she is trying to go to groups. She states that she believes that she can go back her mother's house however this is not confirmed. Claims that she is trying to go to groups and participate as best she can. Denying any side effects at this time from the medications. She is denying any suicidal or homicidal ideations intent or plan, denying any auditory or visual hallucinations. Mental status examination: General Appearance: Patient appears to be stated age is alert, directable, and attempts to cooperate. Improving eye contact. Patient appears to have fair hygiene and grooming. Behavior: Patient is seated without any agitated behavior. Cooperative. Speech: Patient's speech is fluent and nonpressured. Soft tone. Mood/Affect: Patient reports their mood is improving mildly, affect is congruent Suicidality/Homicidality: Patient denies having any homicidal ideation intent or plan. Denies any suicidal ideations intent or plan Perceptions: Patient denies any visual hallucinations and denies any auditory hallucinations Though content/process: There is no evidence of any delusional thought content and thought process is linear and goal-directed. Memory and concentration: AOX3, grossly intact for the purposes of this session Judgment and insight: improving mildly IMPRESSIONS: Suicide attempt after an overdose of medications Depressive disorder NOS borderline personality disorder cannabis use disorder nicotine dependence PLAN: -Patient is admitted under voluntary status to [facility] for stabilization of psychiatric symptoms and safety. Patient has signed adult voluntary form and medication consent and is placed in patient's chart. -Medications : Cymbalta 30 mg BID for mood/anxiety, lithium 150 mg twice a day for mood stabilization/suicidal thoughts. added atarax 25 mg qhs for insomnia/anxiety -Zyprexa and Vistaril PRN for agitation/aggression -NRT - nicotine patch -SW on board for discharge planning. Encourage patient to participate in groups to work on coping skills. hopeful for discharge back home tomorrow, SW to call and ensure safety with mother today
[2023-05-31] MEDS ORDERED: hydrOXYzine HCL 25 MG TAB PO SCH (21:00)
[2023-06-01] MEDS: NICOTINE 7MG/24HR PATCH TRANSDERM SCH (08:22)
[2023-06-01] MEDS: CHOLECALCIFEROL 25 MCG (1000 IU) TABLET PO SCH (08:23)
[2023-06-01] MEDS: LITHIUM CARBONATE 150 MG CAP PO SCH (08:23)
[2023-06-01] MEDS: DULoxetine HCL 30 MG CAPSULE.DR PO SCH (08:23)
[2023-06-01] MEDS: [UNRECOGNIZED DRUG - OTHER] PO SCH (08:24)
[2023-06-01] MEDS: JUNEL FE PO SCH (08:24)
[2023-06-01 08:33] VITALS: BP 126/67; PULSE 87; RESP 20
--- NOTE | 2023-06-01 10:19 | P.DS ---
Providers Date of admission: 05/26/23 07:04 Expected date of discharge: 06/01/23 Attending physician: Danny Ortiz MD Consults: 05/26/23 07:06 Consult Physician Routine Consulting Provider: Jesus Carrillo Consult Reason/Comments: For H & P for Medical Follow Up Do you want consulting provider notified?: Yes, Notify in am Primary care physician: Jesus Carrillo - Discharge Diagnosis(es) (1) Medication overdose Current Visit: Yes Status: Acute Priority: High (2) Depressive disorder Current Visit: Yes Status: Acute Priority: High (3) Borderline personality disorder Current Visit: Yes Status: Acute Priority: Medium (4) Cannabis use disorder Current Visit: Yes Status: Acute Priority: Medium (5) Nicotine dependence Current Visit: Yes Status: Acute Priority: Low Hospital Course: Admission HPI: Admission note was completed by race and sports book writer "Patient is a 17-year-old fe male currently has 2 kids, lives with her mother and sister in a house, she is unemployed. Patient presented to the hospital yesterday and was evaluated in the ER after a suicide attempt after an overdose, patient apparently took 24 tablets of her 2 mg Abilify pills at 7:30 PM yesterday. Patient also endorsed drinking shots of alcohol afterwards. Her AST and ALT were mildly elevated, UDS is posi tive for THC. Patient was seen today in agreeable to speak to race and sports book writer. She appeared to be fairly depressed and her affect, was reporting anxiety as well. She states that she felt that she was hopeless and worthless. She claims that "nobody cared about me anymore" and states that nobody wants her. She states that she broke up with her boyfriend about 13 days ago as she was arguing a lot with him and there were trying to fix things. She states that she has been lonely since then. Claims that after she overdosed in her home she drank pop and alcohol and "sat there" she states that she detected people in her family and also friends and claims that her mother found her in the bathroom and called 911. She states that her sleep has been poor about 6 hours night, states that her appetite is been on and off. Patient denies any current suicidal or homicidal ideations intent or plan. At this time patient denies any auditory or visual hallucinations. Patient denies any flight of ideas racing thoughts and increased in goal directed behavior. Patient admits to using marijuana daily, cigarettes daily." Hospital course: Upon admission to the unit patient was directable and agreeable to commence treatment and signed adult voluntary form. Patient got along well with other patients on the unit and followed unit protocol. Patient was compliant with the medications and denied any side effects throughout hospital course. Patient was started on Cymbalta 30 mg twice a day for mood/anxiety, lithium 150 mg twice a day for mood stabilization/suicidal thoughts, Atarax 50 mg daily at bedtime for insomnia/anxiety with when necessary for anxiety daily. Patient spoke of her stressors and engaged in therapy both group and individual. Patient was also seen by medical team for history and physical exam. Throughout the course of the hospitalization patient gradually improved with regards to mood, anxiety, suicidal thoughts, sleep and became more future oriented with improved insight and judgment. On the day of discharge patient denied any suicidal or homicidal ideations intent or plan denied any auditory or visual hallucinations. Patient endorsed wanting to live for her health and her kids. The patient denied any access to guns or weapons. Patient denied any paranoia and did not endorse any delusions. Patient does have a significant history of substance abuse and was counseled on abstaining from all substances including alcohol and marijuana. Patient elected to do outpatient substance use treatment program through [facility]. Patient was also counseled on the medications and need for regular compliance and was encouraged to follow-up with their outpatient appointment for mental health and also for primary care. Prior to discharge a family meeting will be arranged by social media marketer to answer any questions and ensure safety upon discharge. Mental status exam: General Appearance: Patient appears to be stated age is alert, pleasant, and cooperative. Patient is in no acute distress and has improved hygiene and grooming Behavior: Patient is calmly seated without any agitated behavior. Speech: Patient's speech is fluent and nonpressured. Mood/Affect: Patient reports their mood is "better", affect is congruent and euthymic. Suicidality/Homicidality: Patient denies having any suicidal or homicidal ideation intent or plan. Perceptions: Patient denies any auditory or visual hallucinations. Though content/process: There is no evidence of any delusional thought content and thought process is linear and goal-directed. Memory and concentration: AOX3, grossly intact for the purposes of this session. Can spell "WORLD" backwards correctly. Judgment and insight: chronically poor/impulsive, however has improved with guarded prognosis Impression: Medication overdose Depressive disorder unspecified Borderline personality disorder Cannabis use disorder Nicotine dependence Plan: -Continue with discharge today as patient has improved and stabilized psychiatrically and is not currently an imminent threat to herself and/or others. Patient will remain at chronically elevated risk for harm to self and/or others due to her impulsivity and substance abuse. -Continue medications: Cymbalta 30 mg twice a day for mood/anxiety, lithium 150 mg twice a day for mood stabilization/suicidal thoughts, Atarax 50 mg daily at bedtime for insomnia/anxiety, 25 mg daily when necessary for anxiety. -Patient was counseled on the need for medication compliance and appropriate follow-up at mental health and also primary care for medical issues. Patient verbalized understanding and agreed. -Social work to arrange for and conduct family meeting to ensure safety upon discharge and answer any questions/concerns. Social work also to arrange for patients follow up appointments with [facility] for psychiatric care along with follow up with primary care provider. -Patient counseled on abstaining from recreational drugs and marijuana and alcohol. Was informed/educated on the adverse effects on their physical and mental health. Patient verbally agreed and understood. Patient was offered substance abuse treatment however declined at this time. -Patient was instructed to return to the hospital or seek immediate medical care if their psychiatric or medical symptoms do worsen or reoccur. Allergies Allergy/AdvReac Type Severity Reaction Status Date / Time lamotrigine [From Lamictal] Allergy Swelling Verified 05/26/23 07:12 sertraline [From Zoloft] Allergy Swelling Verified 05/26/23 07:12 Laboratory Results WBC 7.8 k/uL (4.0-11.0) 05/25/23 20:53 RBC 4.73 m/uL (3.80-5.40) 05/25/23 20:53 Hgb 14.3 gm/dL (11.4-16.0) 05/25/23 20:53 Hct 42.4 % (34.0-46.0) 05/25/23 20:53 MCV 89.8 fL (80.0-100.0) 05/25/23 20:53 MCH 30.3 pg (25.0-35.0) 05/25/23 20:53 MCHC 33.7 g/dL (31.0-37.0) 05/25/23 20:53 RDW 13.1 % (11.5-15.5) 05/25/23 20:53 Plt Count 244 k/uL (150-450) 05/25/23 20:53 MPV 8.0 05/25/23 20:53 Neutrophils % 74 % 05/25/23 20:53 Lymphocytes % 17 % 05/25/23 20:53 Monocytes % 5 % 05/25/23 20:53 Eosinophils % 2 % 05/25/23 20:53 Basophils % 0 % 05/25/23 20:53 Neutrophils # 5.8 k/uL (1.3-7.7) 05/25/23 20:53 Lymphocytes # 1.3 k/uL (1.0-4.8) 05/25/23 20:53 Monocytes # 0.4 k/uL (0-1.0) 05/25/23 20:53 Eosinophils # 0.2 k/uL (0-0.7) 05/25/23 20:53 Basophils # 0.0 k/uL (0-0.2) 05/25/23 20:53 Sodium 138 mmol/L (137-145) 05/25/23 20:53 Potassium 5.0 mmol/L (3.5-5.1) 05/25/23 20:53 Chloride 106 mmol/L (98-107) 05/25/23 20:53 Carbon Dioxide 17 mmol/L (22-30) L 05/25/23 20:53 Anion Gap 15 mmol/L 05/25/23 20:53 BUN 13 mg/dL (7-17) 05/25/23 20:53 Creatinine 0.76 mg/dL (0.52-1.04) 05/25/23 20:53 Est GFR (CKD-EPI)AfAm >90 (>60 ml/min/1.73 sqM) 05/25/23 20:53 Est GFR (CKD-EPI)NonAf >90 (>60 ml/min/1.73 sqM) 05/25/23 20:53 Glucose 97 mg/dL (74-99) 05/25/23 20:[address] Glu mg/dL 111 mg/dL 05/27/23 06:52 Hemoglobin A1c 5.5 % (<=6.0) 05/27/23 06:52 Plasma Lactic Acid Federico 1.7 mmol/L (0.7-2.0) 05/25/23 20:53 Calcium 9.7 mg/dL (8.4-10.2) 05/25/23 20:53 Total Bilirubin 1.2 mg/dL (0.2-1.3) 05/27/23 06:52 Conjugated Bilirubin 0.0 mg/dL (0.0-0.3) 05/27/23 06:52 Unconjugated Bilirubin 1.0 mg/dL (0.0-1.1) 05/27/23 06:52 Delta Bilirubin 0.2 mg/dL (0.0-0.2) 05/27/23 06:52 AST 27 U/L (14-36) 05/27/23 06:52 ALT 35 U/L (4-34) H 05/27/23 06:52 Alkaline Phosphatase 62 U/L (38-126) 05/27/23 06:52 Total Protein 8.1 g/dL (6.3-8.2) 05/27/23 06:52 Albumin 4.5 g/dL (3.5-5.0) 05/27/23 06:52 Triglycerides 165.00 mg/dL (0.00-149.00) H 05/27/23 06:52 Cholesterol 203.00 mg/dL (0.00-200.00) H 05/27/23 06:52 LDL Cholesterol, Calc 135.3 mg/dL (0.0-131.0) H 05/27/23 06:52 VLDL Cholesterol, Calc 33.00 mg/dL (5.00-40.00) 05/27/23 06:52 HDL Cholesterol 34.70 mg/dL (40.00-60.00) L 05/27/23 06:52 Cholesterol/HDL Ratio 5.85 Ratio 05/27/23 06:52 TSH 1.720 mIU/L (0.465-4.680) 05/27/23 06:52 Urine Color Light Yellow 05/25/23 21:03 Urine Appearance Clear (Clear) 05/25/23 21:03 Urine pH 5.5 (5.0-8.0) 05/25/23 21:03 Ur Specific Valatie 1.007 (1.001-1.035) 05/25/23 21:03 Urine Protein Negative (Negative) 05/25/23 21:03 Urine Glucose (UA) Negative (Negative) 05/25/23 21:03 Urine Ketones 1+ (Negative) H 05/25/23 21:03 Urine Blood Negative (Negative) 05/25/23 21:03 Urine Nitrite Negative (Negative) 05/25/23 21:03 Urine Bilirubin Negative (Negative) 05/25/23 21:03 Urine Urobilinogen <2.0 mg/dL (<2.0) 05/25/23 21:03 Ur Leukocyte Esterase Negative (Negative) 05/25/23 21:03 Urine HCG, Qual Not Detected (Not Detectd) 05/25/23 21:03 Salicylates <1.0 mg/dL 05/25/23 20:53 Urine Opiates Screen Not Detected (NotDetected) 05/25/23 21:03 Ur Oxycodone Screen Not Detected (NotDetected) 05/25/23 21:03 Urine Methadone Screen Not Detected (NotDetected) 05/25/23 21:03 Ur Propoxyphene Screen Not Detected (NotDetected) 05/25/23 21:03 Acetaminophen <10.0 ug/mL 05/25/23 20:53 Ur Barbiturates Screen Not Detected (NotDetected) 05/25/23 21:03 U Tricyclic Antidepress Not Detected (NotDetected) 05/25/23 21:03 Ur Phencyclidine Scrn Not Detected (NotDetected) 05/25/23 21:03 Ur Amphetamines Screen Not Detected (NotDetected) 05/25/23 21:03 U Methamphetamines Scrn Not Detected (NotDetected) 05/25/23 21:03 U Benzodiazepines Scrn Not Detected (NotDetected) 05/25/23 21:03 Urine Cocaine Screen Not Detected (NotDetected) 05/25/23 21:03 U Marijuana (THC) Screen Detected (NotDetected) H 05/25/23 21:03 Serum Alcohol 13 mg/dL 05/25/23 20:53 Coronavirus (PCR) Not Detected (Not Detectd) 05/26/23 06:34 Vital Signs Temp 97.1 F L 05/31/23 06:00 Pulse 87 06/01/23 08:32 Resp 20 06/01/23 08:32 BP 126/67 06/01/23 08:32 Pulse Ox 97 05/31/23 06:00 FiO2 Patient Condition at Discharge: Stable Plan - Discharge Summary Discharge Rx Participant: No New Discharge Prescriptions: New hydrOXYzine HCL [Atarax] 25 mg PO DAILY PRN 30 Days #30 tab PRN Reason: Anxiety DULoxetine HCL [Cymbalta] 30 mg PO BID 30 Days #60 cap hydrOXYzine HCL [Atarax] 50 mg PO HS 30 Days #60 tab Nicotine 7Mg/24Hr Patch [Habitrol] 1 patch TRANSDERM DAILY 14 Days #14 patch [place] Carbonate 150 mg PO BID 30 Days #60 cap Continue Cholecalciferol [Vitamin D3 (25 Mcg = 1000 Iu)] 25 mcg PO DAILY norethindrone-e.estradioL-iron [Junel Fe 24 Tablet] 1 tab PO DAILY Discontinued ARIPiprazole [Abilify] 2 mg PO DAILY Nitrofurantoin Monohyd/M-Cryst [Macrobid] 100 mg PO Q12HR Discharge Medication List Cholecalciferol [Vitamin D3 (25 Mcg = 1000 Iu)] 25 mcg PO DAILY 05/25/23 [History] norethindrone-e.estradioL-iron [Junel Fe 24 Tablet] 1 tab PO DAILY 05/25/23 [History] DULoxetine HCL [Cymbalta] 30 mg PO BID 30 Days #60 cap 06/01/23 [Rx] [place] Carbonate 150 mg PO BID 30 Days #60 cap 06/01/23 [Rx] Nicotine 7Mg/24Hr Patch [Habitrol] 1 patch TRANSDERM DAILY 14 Days #14 patch 06/01/23 [Rx] hydrOXYzine HCL [Atarax] 25 mg PO DAILY PRN 30 Days #30 tab 06/01/23 [Rx] hydrOXYzine HCL [Atarax] 50 mg PO HS 30 Days #60 tab 06/01/23 [Rx] Follow up Appointment(s)/Referral(s): Jesus Carrillo MD [Primary Care Provider] - 1-2 days Discharge/Stand Alone Forms: AA Meetings [place] Discharge Disposition: HOME SELF-CARE
[2023-06-01] MEDS: hydrOXYzine HCL 25 MG TAB PO PRN (11:38)
--- NOTE | 2023-06-01 20:32 | PN ---
PROGRESS NOTE DATE OF SERVICE: 05/31/2023 CHIEF COMPLAINT: Major depression with suicidal thoughts. HISTORY OF PRESENT ILLNESS: This lady is doing well and expects to go home soon. She became very depressed and had suicidal thoughts. REVIEW OF SYSTEMS: Unremarkable. Past medical history, family history, and personal and social histories are unremarkable. She is allergic to Zoloft and Lexapro. She has been on Abilify. Surgically, she has had 2 C-sections. She smokes a pack of cigarettes a day. PHYSICAL EXAMINATION: VITAL SIGNS: Normal. HEAD, EARS, EYES, NOSE, MOUTH, AND THROAT: Normal. CHEST: Clear. CARDIAC: Normal. ABDOMEN: Soft and nontender. IMPRESSION: 1. Major depression with suicidal thoughts. 2. Nicotine use. RECOMMENDATIONS: No further recommendations at this time. She expects to be going home today or tomorrow. MMODL / JOEYN: [id number] /
== END 2023-06-01 12:05 | disposition home or self-care (01) | DRG 754 ==
LOC: EC 20:34 → 3MHU 05-26 07:04
PROVIDERS: ADMIT Psychiatry & Neurology Psychiatry; ATTEND Psychiatry & Neurology Psychiatry
DX: F32.A Depression, unspecified (principal); F12.10 Cannabis abuse, uncomplicated; F17.210 Nicotine dependence, cigarettes, uncomplicated; F60.3 Borderline personality disorder; G47.00 Insomnia, unspecified; T43.592A Poisoning by other antipsychotics and neuroleptics, intentional self-harm, initial encounter; Y90.0 Blood alcohol level of less than 20 mg/100 ml; Z56.0 Unemployment, unspecified; Z79.899 Other long term (current) drug therapy; Z91.51 Personal history of suicidal behavior; R94.5 Abnormal results of liver function studies; Z88.8 Allergy status to other drugs, medicaments and biological substances; Z20.822 Contact with and (suspected) exposure to COVID-19; Z28.21 Immunization not carried out because of patient refusal; Z71.51 Drug abuse counseling and surveillance of drug abuser; Z71.6 Tobacco abuse counseling
CPT/HCPCS: 36415; 80053; 80061; 80076; 80143; 80179; 80306; 80320; 81003; 81025; 82075; 83036; 83605; 84443; 85025; 87635; 93005; 96361; 96374

== ENCOUNTER 2023-07-19 19:46 | Emergency (ER) | payer OTHER ==
[2023-07-19 20:16] VITALS: BP 112/75; PULSE 102; RESP 22; TEMP 97.9
--- NOTE | 2023-07-19 22:18 | ED ---
Psych HPI - General Source: patient, police, RN notes reviewed Mode of arrival: ambulatory Limitations: no limitations <Sandoval Ortega - Last Filed: 07/19/23 22:15> - History of Present Illness MD Complaint: suicidal ideation, feels depressed Associated Psychiatric Symptoms: depression, suicidal ideation History of same: Yes Quality: constant, getting worse Improves With: none Worsens With: none Context: significant life stressor Associated Symptoms: denies other symptoms Treatments Prior to Arrival: none <Syd Horowitz - Last Filed: 07/19/23 22:59> - General Chief Complaint: Psychiatric Symptoms Stated Complaint: Petition Time Seen by Provider: 07/19/23 21:26 - History of Present Illness Initial Comments: 17-year-old female sent emergency Department with police for psychiatric evaluation. Patient was threatening suicide. She does admit that she is suicidal, she is very depressed, suicidal she states that she went to harm herself she does admit to marijuana use recently denies any alcohol abuse she is supposed to medications for anxiety depression with states she's not been on them. Denies any self-harm at this point. (Sandoval Ortega) 17 female DF for psychiatric evaluation today marijuana use, no alcohol use no other drug abuse (Syd Horowitz) - Related Data Home Medications Medication Instructions Recorded Confirmed Cholecalciferol [Vitamin D3 (25 25 mcg PO DAILY 05/25/23 05/26/23 Mcg = 1000 Iu)] norethindrone-e.estradioL-iron 1 tab PO DAILY 05/25/23 05/26/23 [Junel Fe 24 Tablet] Previous Rx's Medication Instructions Recorded DULoxetine HCL [Cymbalta] 30 mg PO BID 30 Days #60 cap 06/01/23 [place] Carbonate 150 mg PO BID 30 Days #60 cap 06/01/23 Nicotine 7Mg/24Hr Patch [Habitrol] 1 patch TRANSDERM DAILY 14 Days 06/01/23 #14 patch hydrOXYzine HCL [Atarax] 25 mg PO DAILY PRN 30 Days #30 tab 06/01/23 hydrOXYzine HCL [Atarax] 50 mg PO HS 30 Days #60 tab 06/01/23 Allergies Allergy/AdvReac Type Severity Reaction Status Date / Time lamotrigine [From Lamictal] Allergy Swelling Verified 07/19/23 20:05 sertraline [From Zoloft] Allergy Swelling Verified 07/19/23 20:05 Review of Systems ROS Other: All systems not noted in ROS Statement are negative. <Sandoval Ortega - Last Filed: 07/19/23 22:15> ROS Other: All systems not noted in ROS Statement are negative. <Syd Horowitz - Last Filed: 07/19/23 22:59> ROS Statement: Those systems with pertinent positive or pertinent negative responses have been documented in the HPI. Past Medical History Past Medical History: No Reported History History of Any Multi-Drug Resistant Organisms: None Reported Past Surgical History: Section Past Anesthesia/Blood Transfusion Reactions: No Reported Reaction Past Psychological History: Anxiety, Depression Smoking Status: Former smoker Past Alcohol Use History: Occasional Past Drug Use History: None Reported - Past Family History Mother Family Medical History: No Reported History <Sandoval Ortega - Last Filed: 07/19/23 22:15> General Exam Limitations: no limitations General appearance: alert, in no apparent distress Head exam: Present: atraumatic, normocephalic, normal inspection Eye exam: Present: normal appearance, PERRL, EOMI. Absent: scleral icterus, conjunctival injection, periorbital swelling ENT exam: Present: normal exam, normal oropharynx, mucous membranes moist Neck exam: Present: normal inspection, full ROM. Absent: tenderness, meningismus, lymphadenopathy Respiratory exam: Present: normal lung sounds bilaterally. Absent: respiratory distress, wheezes, rales, rhonchi, stridor Cardiovascular Exam: Present: regular rate, normal rhythm, normal heart sounds. Absent: systolic murmur, diastolic murmur, rubs, gallop, clicks GI/Abdominal exam: Present: soft, normal bowel sounds. Absent: distended, tenderness, guarding, rebound, rigid Neurological exam: Present: alert Psychiatric exam: Present: depressed Skin exam: Present: warm, dry, intact, normal color. Absent: rash <Sandoval Ortega - Last Filed: 07/19/23 22:15> General appearance: alert, in no apparent distress Head exam: Present: atraumatic, normocephalic, normal inspection Eye exam: Present: normal appearance, PERRL, EOMI. Absent: scleral icterus, conjunctival injection, periorbital swelling ENT exam: Present: normal exam, mucous membranes moist Neck exam: Present: normal inspection. Absent: tenderness, meningismus, lymphadenopathy Respiratory exam: Present: normal lung sounds bilaterally. Absent: respiratory distress, wheezes, rales, rhonchi, stridor Cardiovascular Exam: Present: regular rate, normal rhythm, normal heart sounds. Absent: systolic murmur, diastolic murmur, rubs, gallop, clicks GI/Abdominal exam: Present: soft, normal bowel sounds. Absent: distended, tenderness, guarding, rebound, rigid Extremities exam: Present: normal inspection, full ROM, normal capillary refill. Absent: tenderness, pedal edema, joint swelling, calf tenderness Back exam: Present: normal inspection Neurological exam: Present: alert, oriented X3, CN II-XII intact Psychiatric exam: Present: normal affect, normal mood Skin exam: Present: warm, dry, intact, normal color. Absent: rash <Syd Horowitz - Last Filed: 07/19/23 22:59> Course <Syd Horowitz - Last Filed: 07/19/23 22:59> Vital Signs 07/19/23 19:59 Temperature 97.9 F Pulse Rate 102 H Respiratory 22 Rate Blood Pressure 112/75 O2 Sat by Pulse 99 Oximetry - Reevaluation(s) Reevaluation #1: 07/19/23 22:58 Medical records reviewed (Syd Horowitz) Reevaluation #2: 07/19/23 22:58 Medical clear for psychiatric evaluation (Syd Horowitz) Medical Decision Making <Sandoval Ortega - Last Filed: 07/19/23 22:15> <Syd Horowitz - Last Filed: 07/19/23 22:59> - Medical Decision Making Was pt. sent in by a medical professional or institution (, PA, FILTERER, urgent care, hospital, or retirement...) When possible be specific @ -No Did you speak to anyone other than the patient for history (EMS, parent, family, police, friend...)? What history was obtained from this source @ -Police who escorted the patient and filled out petition Did you review nursing and triage notes (agree or disagree)? Why? @ -I reviewed and agree with nursing and triage notes Were old charts reviewed (outside hosp., previous admission, EMS record, old EKG, old radiological studies, urgent care reports/EKG's, retirement records)? Report findings @ -No old charts were reviewed Differential Diagnosis (chest pain, altered mental status, abdominal pain women, abdominal pain men, vaginal bleeding, weakness, fever, dyspnea, syncope, headache, dizziness, GI bleed, back pain, seizure, CVA, palpatations, mental health, musculoskeletal)? @ -nDifferential Mental Health Depression, anxiety, bipolar, psychosis, schizophrenia, borderline personality, situational depression, adjustment disorder, behavioral disorder, brain tumor, malingering, substance abuse, encephalopathy, medication reaction, dementia, hypothyroidism, degenerative neurologic disorder, lupus.... This is not meant to be all-inclusive listable EKG interpreted by me (3pts min.). @ -As above X-rays interpreted by me (1pt min.). @ -None done CT interpreted by me (1pt min.). @ -None done U/S interpreted by me (1pt. min.). @ -None done What testing was considered but not performed or refused? (CT, X-rays, U/S, labs)? Why? @ -None What meds were considered but not given or refused? Why? @ -None Did you discuss the management of the patient with other professionals (professionals i.e. , PA, FILTERER, lab, RT, psych nurse, social scientist, collar worker, teacher, sewage reticulation drafting officer, case coordinator)? Give summary @ -EPS evaluated the patient recommended patient to be admitted to psychiatric services patient is transferred Was smoking cessation discussed for >3mins.? @ -No Was critical care preformed (if so, how long)? @ -No Were there social determinants of health that impacted care today? How? (Homelessness, low income, unemployed, alcoholism, drug addiction, transportation, low edu. Level, literacy, decrease access to med. care, group home, rehab)? @ -No Was there de-escalation of care discussed even if they declined (Discuss DNR or withdrawal of care, Hospice)? DNR status @ -No What co-morbidities impacted this encounter? (DM, HTN, Smoking, COPD, CAD, Cancer, CVA, ARF, Chemo, Hep., AIDS, mental health diagnosis, sleep apnea, m orbid obesity)? @ -None Was patient admitted / discharged? Hospital course, mention meds given and route, prescriptions, significant lab abnormalities, going to OR and other pertinent info. @ -Transferred to psychiatric facility patient was evaluated by EPS and recommended to be admitted for further treatment Undiagnosed new problem with uncertain prognosis? @ -No Drug Therapy requiring intensive monitoring for toxicity (Heparin, Nitro, Insulin, Cardizem)? @ -No Were any procedures done? @ -No Diagnosis/symptom? @ -Depression, suicidal ideation Acute, or Chronic, or Acute on Chronic? @ -Acute Uncomplicated (without systemic symptoms) or Complicated (systemic symptoms)? @ - complicated Side effects of treatment? @ -No Exacerbation, Progression, or Severe Exacerbation? @ -No Poses a threat to life or bodily function? How? (Chest pain, [place], [place], pneumonia, PE, COPD, DKA, ARF, appy, cholecystitis, CVA, Diverticulitis, Homicidal, Suicidal, threat to staff... and all critical care pts) @ -Yes patient is suicidal (Sandoval Ortega) 17 female to the emergency department for evaluation of psychiatric illness. Patient be transferred for inpatient psychiatric evaluation and treatment (Syd Horowitz) Disposition Time of Disposition: 22:17 <Sandoval Ortega - Last Filed: 07/19/23 22:15> Is patient prescribed a controlled substance at d/c from ED?: No <Syd Horowitz - Last Filed: 07/19/23 22:59> Clinical Impression: Depression, Suicidal ideation, Acute anxiety, Depressive disorder, Borderline personality disorder Disposition: TRANSFER TO PSYCH HOSP/UNIT Condition: Fair Referrals: Jesus Carrillo MD [Primary Care Provider] - 1-2 days
[2023-07-19 23:23] LABS: Amphetamine Screen,Urine Not Detected (NotDetected); Barbiturate Screen,Urine Not Detected (NotDetected); Benzodiazepines Screen,Urine Not Detected (NotDetected); Cocaine Screen,Urine Not Detected (NotDetected); Methadone Screen, Urine Not Detected (NotDetected); Opiate Screen,Urine Not Detected (NotDetected); Oxycodone Screen, Urine Not Detected (NotDetected); Phencyclidine Screen,Urine Not Detected (NotDetected); Tricyclic Antidepressant,Urine Not Detected (NotDetected); Urn Cannabinoid Scrn Detected (NotDetected)
[2023-07-19 23:27] LABS: Appearance,Urine Cloudy (Clear); Bacteria,Urine Occasional /hpf; Bilirubin,Urine Negative (Negative); Blood,Urine Negative (Negative); Color,Urine Yellow; Glucose,Urine (UA) Negative (Negative); Ketones,Urine 1+ (Negative); Leukocyte Esterase,Urine Trace (Negative); Mucus,Urine Many /hpf; Nitrite,Urine Positive (Negative); Protein,Urine Trace (Negative); RBC,Urine 1 /hpf (0-5); Specific Gravity,Urine 1.024 (1.001-1.035); Squamous Epithelial Cell,Urine <1 /hpf (0-4); Urobilinogen,Urine <2.0 mg/dL (<2.0); WBC,Urine 4 /hpf (0-5)
[2023-07-19 23:57] LABS: ALT 47 U/L (4-34); AST 52 U/L (14-36); African American GFR (CKD) >90 (>60 ml/min/1.73 sqM); Alkaline Phosphatase 73 U/L (38-126); Anion Gap 9 mmol/L; Blood Urea Nitrogen 11 mg/dL (7-17); Calcium 9.1 mg/dL (8.4-10.2); Carbon Dioxide 23 mmol/L (22-30); Chloride 105 mmol/L (98-107); Glucose 83 mg/dL (74-99); Non-African American GFR(CKD) >90 (>60 ml/min/1.73 sqM); Potassium 4.6 mmol/L (3.5-5.1); Sodium 137 mmol/L (137-145); Total Bilirubin 1.4 mg/dL (0.2-1.3); Total Protein 7.5 g/dL (6.3-8.2)
[2023-07-20 00:53] LABS: HCT 37.5 % (34.0-46.0); HGB 12.6 gm/dL (11.4-16.0); MCH 29.8 pg (25.0-35.0); MCHC 33.5 g/dL (31.0-37.0); Mean Platelet Volume 7.7; Platelet Count 174 k/uL (150-450); RBC 4.22 m/uL (3.80-5.40); RDW 14.6 % (11.5-15.5); WBC 8.9 k/uL (4.0-11.0)
[2023-07-20 01:38] LABS: Anisocytosis (M) Present; Lymphocytes # (M) 4.98 k/uL (1.0-4.8); Monocytes # (M) 0.89 k/uL (0-1.0); Neutrophils # (M) 3.03 k/uL (1.3-7.7); Neutrophils % (M) 34 %; Nucleated Red Blood Cells 0 /100 WBC (0-0); Total Cells Counted 100
== END 2023-07-20 12:21 ==
LOC: EC 19:46
DX: F32.A Depression, unspecified (principal); F41.9 Anxiety disorder, unspecified; F60.3 Borderline personality disorder; R45.851 Suicidal ideations; Z88.8 Allergy status to other drugs, medicaments and biological substances; Z20.822 Contact with and (suspected) exposure to COVID-19; Z87.891 Personal history of nicotine dependence
CPT/HCPCS: 36415; 80053; 80306; 81001; 81025; 82075; 85025; 87635; 99285

== ENCOUNTER 2023-10-30 01:08 | Emergency (ER) | payer OTHER ==
--- NOTE | 2023-10-30 02:36 | ED ---
Psych HPI - General Chief Complaint: Psychiatric Symptoms Stated Complaint: Mental Health Eval Time Seen by Provider: 10/30/23 01:20 Source: patient Mode of arrival: ambulatory - History of Present Illness Initial Comments: 17-year-old female presenting for mental health evaluation. Patient admits to suicidal ideation. She states that this evening she thought about taking all of her medications, but she did not want to hurt herself and decided to come to the ER for help instead. Denies any homicidal ideation. No visual or auditory hallucinations. She denies any physical complaints at this time. - Related Data Home Medications Medication Instructions Recorded Confirmed Cholecalciferol [Vitamin D3 (25 25 mcg PO DAILY 05/25/23 05/26/23 Mcg = 1000 Iu)] norethindrone-e.estradioL-iron 1 tab PO DAILY 05/25/23 05/26/23 [Junel Fe 24 Tablet] Previous Rx's Medication Instructions Recorded DULoxetine HCL [Cymbalta] 30 mg PO BID 30 Days #60 cap 06/01/23 [place] Carbonate 150 mg PO BID 30 Days #60 cap 06/01/23 Nicotine 7Mg/24Hr Patch [Habitrol] 1 patch TRANSDERM DAILY 14 Days 06/01/23 #14 patch hydrOXYzine HCL [Atarax] 25 mg PO DAILY PRN 30 Days #30 tab 06/01/23 hydrOXYzine HCL [Atarax] 50 mg PO HS 30 Days #60 tab 06/01/23 Allergies Allergy/AdvReac Type Severity Reaction Status Date / Time lamotrigine [From Lamictal] Allergy Swelling Verified 10/30/23 01:17 sertraline [From Zoloft] Allergy Swelling Verified 10/30/23 01:17 Review of Systems ROS Statement: Those systems with pertinent positive or pertinent negative responses have been documented in the HPI. ROS Other: All systems not noted in ROS Statement are negative. Past Medical History Past Medical History: No Reported History History of Any Multi-Drug Resistant Organisms: None Reported Past Surgical History: Section Past Anesthesia/Blood Transfusion Reactions: No Reported Reaction Past Psychological History: Anxiety, Depression Smoking Status: Former smoker, Vaper Past Alcohol Use History: Occasional Past Drug Use History: None Reported - Past Family History Mother Family Medical History: No Reported History General Exam Limitations: no limitations General appearance: alert, in no apparent distress Head exam: Present: atraumatic, normocephalic Eye exam: Present: normal appearance, EOMI Neck exam: Present: normal inspection Respiratory exam: Present: normal lung sounds bilaterally. Absent: respiratory distress, wheezes, rales, rhonchi, stridor Cardiovascular Exam: Present: regular rate, normal rhythm, normal heart sounds. Absent: systolic murmur, diastolic murmur, rubs, gallop, clicks Extremities exam: Present: normal inspection Neurological exam: Present: alert, oriented X3 Psychiatric exam: Present: normal affect, normal mood, suicidal ideation. Absent: homicidal ideation Skin exam: Present: warm, dry Course Vital Signs 10/30/23 10/30/23 01:14 05:07 Temperature 98.3 F 98.2 F Pulse Rate 105 H 68 Respiratory 20 18 Rate Blood Pressure 111/74 118/68 O2 Sat by Pulse 95 98 Oximetry Medical Decision Making - Medical Decision Making Was pt. sent in by a medical professional or institution (, PA, MECHANICAL LABORATORY TECHNICIAN, urgent care, hospital, or shelter...) When possible be specific @ -No Did you speak to anyone other than the patient for history (EMS, parent, family, police, friend...)? What history was obtained from this source @ -No Did you review nursing and triage notes (agree or disagree)? Why? @ -I reviewed and agree with nursing and triage notes Were old charts reviewed (outside hosp., previous admission, EMS record, old EKG, old radiological studies, urgent care reports/EKG's, shelter records)? Report findings @ -No old charts were reviewed Differential Diagnosis (chest pain, altered mental status, abdominal pain women, abdominal pain men, vaginal bleeding, weakness, fever, dyspnea, syncope, headache, dizziness, GI bleed, back pain, seizure, CVA, palpatations, mental health, musculoskeletal)? @ -Differential Mental Health Depression, anxiety, bipolar, psychosis, schizophrenia, borderline personality, situational depression, adjustment disorder, behavioral disorder, brain tumor, malingering, substance abuse, encephalopathy, medication reaction, dementia, hypothyroidism, degenerative neurologic disorder, lupus.... This is not meant to be all-inclusive list EKG interpreted by me (3pts min.). @ -As above X-rays interpreted by me (1pt min.). @ -None done CT interpreted by me (1pt min.). @ -None done U/S interpreted by me (1pt. min.). @ -None done What testing was considered but not performed or refused? (CT, X-rays, U/S, labs)? Why? @ -None What meds were considered but not given or refused? Why? @ -None Did you discuss the management of the patient with other professionals (professionals i.e. Dr., PA, MECHANICAL LABORATORY TECHNICIAN, lab, RT, psych nurse, social worker masters, fitness sales associate, teacher, strike operations officer, assistant case manager)? Give summary @ -No Was smoking cessation discussed for >3mins.? @ -No Was critical care preformed (if so, how long)? @ -No Were there social determinants of health that impacted care today? How? (Homelessness, low income, unemployed, alcoholism, drug addiction, transportation, low edu. Level, literacy, decrease access to med. care, fpc, rehab)? @ -No Was there de-escalation of care discussed even if they declined (Discuss DNR or withdrawal of care, Hospice)? DNR status @ -No What co-morbidities impacted this encounter? (DM, HTN, Smoking, COPD, CAD, Cancer, CVA, ARF, Chemo, Hep., AIDS, mental health diagnosis, sleep apnea, mo rbid obesity)? @ -Depression Was patient admitted / discharged? Hospital course, mention meds given and route, prescriptions, significant lab abnormalities, going to OR and other pertinent info. @ -17-year-old female presenting for mental health evaluation. She states that this evening she thought about taking all of her medications, however she decided to come to the ER for help instead. No homicidal ideation. Patient has no physical complaints at this time. She is resting comfortably showed no acute signs of distress. Urine toxicology is negative. HCG is negative and urine shows no bleeding or infectious process. While in the ER the patient had family and friends at her bedside, she states that having these visitors greatly improved her mental health. Patient denies any suicidal thoughts at this time would like to be discharged home. She will be staying with a friend, this friends at bedside and states that the patient would have no access to weapons at her home. Friend also states that she will be walking alleviate the patient's medications so that the patient can take them only as prescribed. Patient is competent in her ability to keep herself safe at this time. She is of sound mind and body and able to make her own decisions. Adamantly denies suicidal thoughts at this time, states she feels much better after talking with friends. Discharged home with friends.Follow-up with PCP. Report back to ER with any new or worsening symptoms. Discussed return parameters and answered all questions. Patient conveyed verbal understanding and agreed to the plan. I discussed this case in detail with my attending Dr. Ruggiero Undiagnosed new problem with uncertain prognosis? @ -No Drug Therapy requiring intensive monitoring for toxicity (Heparin, Nitro, Insulin, Cardizem)? @ -No Were any procedures done? @ -No Diagnosis/symptom? @ -Depression Acute, or Chronic, or Acute on Chronic? @ -acute on chronic Uncomplicated (without systemic symptoms) or Complicated (systemic symptoms)? @ -Uncomplicated Side effects of treatment? @ -No Exacerbation, Progression, or Severe Exacerbation? @ -No Poses a threat to life or bodily function? How? (Chest pain, [place], [place], pneumonia, PE, COPD, DKA, ARF, appy, cholecystitis, CVA, Diverticulitis, Homicidal, Suicidal, threat to staff... and all critical care pts) @ -No - Lab Data Lab Results 10/30/23 10/30/23 Range/Units 04:09 04:10 Urine Color Light Yellow Urine Appearance Clear (Clear) Urine pH 6.5 (5.0-8.0) Ur Specific [place] 1.023 (1.001-1.035) Urine Protein Negative (Negative) Urine Glucose (UA) Negative (Negative) Urine Ketones Negative (Negative) Urine Blood Negative (Negative) Urine Nitrite Negative (Negative) Urine Bilirubin Negative (Negative) Urine Urobilinogen <2.0 (<2.0) mg/dL Ur Leukocyte Esterase Negative (Negative) Urine HCG, Qual Not Detected (Not Detectd) Urine Opiates Screen Not Detected (NotDetected) Ur Oxycodone Screen Not Detected (NotDetected) Urine Methadone Screen Not Detected (NotDetected) Ur Barbiturates Screen Not Detected (NotDetected) U Tricyclic Antidepress Not Detected (NotDetected) Ur Phencyclidine Scrn Not Detected (NotDetected) Ur Amphetamines Screen Not Detected (NotDetected) U Methamphetamines Scrn Not Detected (NotDetected) U Benzodiazepines Scrn Not Detected (NotDetected) Urine Cocaine Screen Not Detected (NotDetected) U Marijuana (THC) Screen Not Detected (NotDetected) Disposition Clinical Impression: Depression Disposition: HOME SELF-CARE Condition: Good Instructions (If sedation given, give patient instructions): Depression (ED), Suicide Prevention (ED) Additional Instructions: Follow-up with PCP and mental health team report back to ER with any new or worsening symptoms Is patient prescribed a controlled substance at d/c from ED?: No Referrals: Jesus Carrillo MD [Primary Care Provider] - 1-2 days [facility] [NON-STAFF] - 1-2 days Time of Disposition: 04:49
[2023-10-30 04:23] LABS: Appearance,Urine Clear (Clear); Bilirubin,Urine Negative (Negative); Blood,Urine Negative (Negative); Color,Urine Light Yellow; Glucose,Urine (UA) Negative (Negative); Ketones,Urine Negative (Negative); Leukocyte Esterase,Urine Negative (Negative); Nitrite,Urine Negative (Negative); PH, Urine 6.5 (5.0-8.0); Protein,Urine Negative (Negative); Specific Gravity,Urine 1.023 (1.001-1.035); Urobilinogen,Urine <2.0 mg/dL (<2.0)
[2023-10-30 04:38] LABS: Amphetamine Screen,Urine Not Detected (NotDetected); Barbiturate Screen,Urine Not Detected (NotDetected); Benzodiazepines Screen,Urine Not Detected (NotDetected); Cocaine Screen,Urine Not Detected (NotDetected); Methadone Screen, Urine Not Detected (NotDetected); Opiate Screen,Urine Not Detected (NotDetected); Oxycodone Screen, Urine Not Detected (NotDetected); Phencyclidine Screen,Urine Not Detected (NotDetected); Tricyclic Antidepressant,Urine Not Detected (NotDetected); Urn Cannabinoid Scrn Not Detected (NotDetected)
[2023-10-30 05:37] VITALS: BP 118/68; PULSE 68; RESP 18; TEMP 98.2
== END 2023-10-30 05:09 | disposition home or self-care (01) ==
LOC: EC 01:08
DX: F32.A Depression, unspecified (principal); F17.290 Nicotine dependence, other tobacco product, uncomplicated; Z88.8 Allergy status to other drugs, medicaments and biological substances
CPT/HCPCS: 80306; 81003; 81025; 82075; 99285

== ENCOUNTER 2023-11-24 15:01 | Inpatient (IN) | payer MEDICAID, OTHER ==
--- NOTE | 2023-11-24 15:17 | ED ---
General Adult HPI - General Source: patient, RN notes reviewed Mode of arrival: ambulatory Limitations: no limitations <Sandoval Ortega - Last Filed: 11/24/23 15:12> <Lesia Chakraborty - Last Filed: 11/24/23 22:10> - General Stated complaint: mental health Time Seen by Provider: 11/24/23 15:05 - History of Present Illness Initial comments: 18-year-old female presents emergency department with chief complaint of needing psychiatric evaluation. Patient was recently here for similar complaints. She is having increasing depression denies being suicidal. Patient states that she self cuts. Patient states that she stopped her medications 5 days ago (ShannonSandoval Villanueva) 18-year-old female presents to the emergency department for psychiatric evaluation. She went into her primary care office today for routine physical. They asked her questions about depression and she did answer that she was depressed, suicidal with a plan to shoot herself with a gun. This prompted her primary care to send over to the emergency department. Patient reports that she has been depressed for some time. She is supposed to take medications however stopped them 5 days ago because she thought that they were making her sick. She normally follows with a counselor. Does admit to being hospitalized previously for mental health. She denies drug or alcohol use. No concern for . Patient does have several self-inflicted lacerations to her left upper extremity however none requiring repair. No other alleviating, precipitating or modifying factors (Lesia Chakraborty) - Related Data Home Medications Medication Instructions Recorded Confirmed Cholecalciferol [Vitamin D3 (25 25 mcg PO DAILY 05/25/23 11/24/23 Mcg = 1000 Iu)] Escitalopram Oxalate [Lexapro] 10 mg PO HS 11/24/23 11/24/23 Paliperidone [Invega] 3 mg PO HS 11/24/23 11/24/23 hydrOXYzine HCL [Atarax] 25 mg PO BID 11/24/23 11/24/23 hydrOXYzine HCL [Atarax] 100 mg PO HS PRN 11/24/23 11/24/23 norethindrone-e.estradioL-iron 1 tab PO DAILY 11/24/23 11/24/23 [Junel Fe 1 mg-20 Mcg Tablet] traZODone HCL [Trazodone HCl] 300 mg PO HS 11/24/23 11/24/23 Allergies Allergy/AdvReac Type Severity Reaction Status Date / Time lamotrigine [From Lamictal] Allergy Anaphylaxis Verified 11/24/23 16:36 sertraline [From Zoloft] Allergy Anaphylaxis Verified 11/24/23 16:36 Review of Systems ROS Other: All systems not noted in ROS Statement are negative. <Sandoval Ortega - Last Filed: 11/24/23 15:12> ROS Other: All systems not noted in ROS Statement are negative. <Lesia Chakraborty - Last Filed: 11/24/23 22:10> ROS Statement: Those systems with pertinent positive or pertinent negative responses have been documented in the HPI. Past Medical History Past Medical History: No Reported History History of Any Multi-Drug Resistant Organisms: None Reported Past Surgical History: Section Past Anesthesia/Blood Transfusion Reactions: No Reported Reaction Past Psychological History: Anxiety, Depression Smoking Status: Former smoker, Vaper Past Alcohol Use History: Occasional Past Drug Use History: None Reported - Past Family History Mother Family Medical History: No Reported History <Sandoval Ortega - Last Filed: 11/24/23 15:12> General Exam <Sandoval Ortega - Last Filed: 11/24/23 15:12> General appearance: alert, in no apparent distress Head exam: Present: atraumatic, normocephalic, normal inspection Eye exam: Present: normal appearance, PERRL, EOMI. Absent: scleral icterus, conjunctival injection, periorbital swelling ENT exam: Present: normal exam, mucous membranes moist Neck exam: Present: normal inspection. Absent: tenderness, meningismus, lymphadenopathy Respiratory exam: Present: normal lung sounds bilaterally. Absent: respiratory distress, wheezes, rales, rhonchi, stridor Cardiovascular Exam: Present: regular rate, normal rhythm, normal heart sounds. Absent: systolic murmur, diastolic murmur, rubs, gallop, clicks GI/Abdominal exam: Present: soft, normal bowel sounds. Absent: distended, tenderness, guarding, rebound, rigid Extremities exam: Present: normal inspection, full ROM, normal capillary refill. Absent: tenderness, pedal edema, joint swelling, calf tenderness Back exam: Present: normal inspection Neurological exam: Present: alert, oriented X3, CN II-XII intact Psychiatric exam: Present: normal affect, normal mood Skin exam: Present: warm, dry, normal color, other (Multiple linear, self- inflicted lacerations to the left forearm). Absent: rash <Lesia Chakraborty - Last Filed: 11/24/23 22:10> - General Exam Comments Initial Comments: Visual Physical Exam Vital signs reviewed General: Well-appearing, nontoxic, no acute distress. Head: Normocephalic, atraumatic Eyes: PERRLA, EOMI ENT: Airway patent Chest: Nonlabored breathing Skin: No visual rash, normal skin tone Neuro: Alert and oriented 3 Musculoskeletal: No gross abnormalities (Sandoval Ortega) Course Vital Signs 11/24/23 15:15 Temperature 98.5 F Pulse Rate 82 Respiratory 18 Rate Blood Pressure 123/80 O2 Sat by Pulse 98 Oximetry Medical Decision Making <Sandoval Ortega - Last Filed: 11/24/23 15:12> <Lesia Chakraborty - Last Filed: 11/24/23 22:10> - Medical Decision Making I completed the quick note portion of this chart signed Sandoval Ortega PA-C (Sandoval Smith) Was pt. sent in by a medical professional or institution ([facility], HAND TIRE TRIMMER, urgent care, hospital, or alf...) When possible be specific @ -Patient sent in from her primary care office Did you speak to anyone other than the patient for history (EMS, parent, family, police, friend...)? What history was obtained from this source @ -No Did you review nursing and triage notes (agree or disagree)? Why? @ -I reviewed and agree with nursing and triage notes Were old charts reviewed (outside hosp., previous admission, EMS record, old EKG, old radiological studies, urgent care reports/EKG's, alf records)? Report findings @ -No old charts were reviewed Differential Diagnosis (chest pain, altered mental status, abdominal pain women, abdominal pain men, vaginal bleeding, weakness, fever, dyspnea, syncope, headache, dizziness, GI bleed, back pain, seizure, CVA, palpatations, mental health, musculoskeletal)? @ -Differential Mental Health Depression, anxiety, bipolar, psychosis, schizophrenia, borderline personality, situational depression, adjustment disorder, behavioral disorder, brain tumor, malingering, substance abuse, encephalopathy, medication reaction, dementia, hypothyroidism, degenerative neurologic disorder, lupus.... This is not meant to be all-inclusive list EKG interpreted by me (3pts min.). @ -Not done X-rays interpreted by me (1pt min.). @ -None done CT interpreted by me (1pt min.). @ -None done U/S interpreted by me (1pt. min.). @ -None done What testing was considered but not performed or refused? (CT, X-rays, U/S, labs)? Why? @ -None What meds were considered but not given or refused? Why? @ -None Did you discuss the management of the patient with other professionals (professionals i.e. , PA, HAND TIRE TRIMMER, lab, RT, psych nurse, social work nurse, green lumber grader, teacher, admitting officer, case assistant)? Give summary @ -Spoke with the EPS nurse. She did evaluate the patient and the patient requires admission Was smoking cessation discussed for >3mins.? @ -No Was critical care preformed (if so, how long)? @ -No Were there social determinants of health that impacted care today? How? (Homelessness, low income, unemployed, alcoholism, drug addiction, transportation, low edu. Level, literacy, decrease access to med. care, [facility], rehab)? @ -No Was there de-escalation of care discussed even if they declined (Discuss DNR or withdrawal of care, Hospice)? DNR status @ -No What co-morbidities impacted this encounter? (DM, HTN, Smoking, COPD, CAD, Cancer, CVA, ARF, Chemo, Hep., AIDS, mental health diagnosis, sleep apnea, morbid obesity)? @ -Depression Was patient admitted / discharged? Hospital course, mention meds given and route, prescriptions, significant lab abnormalities, going to OR and other pertinent info. @ -Admitted. Upon arrival patient placed in room 12. Thorough history and physical exam was performed. Patient is not intoxicated at this time. She is stable for EPS evaluation. EPS does evaluate the patient and feels that she needs to be admitted. Patient is agreeable to admission. COVID is ordered. Patient pending a bed on the floor Undiagnosed new problem with uncertain prognosis? @ -No Drug Therapy requiring intensive monitoring for toxicity (Heparin, Nitro, Insulin, Cardizem)? @ -No Were any procedures done? @ -No Diagnosis/symptom? @ -Acute depression, suicidal ideations Acute, or Chronic, or Acute on Chronic? @ -Acute Uncomplicated (without systemic symptoms) or Complicated (systemic symptoms)? @ -Complicated Side effects of treatment? @ -No Exacerbation, Progression, or Severe Exacerbation? @ -No Poses a threat to life or bodily function? How? (Chest pain, USA, MD, pneumonia, PE, COPD, DKA, ARF, appy, cholecystitis, CVA, Diverticulitis, Homicidal, Suicidal, threat to staff... and all critical care pts) @ -Yes patient is actively suicidal (Lesia Chakraborty) - Lab Data Lab Results 11/24/23 11/24/23 11/24/23 Range/Units 15:41 16:00 21:02 Urine HCG, Qual Not Detected (Not Detectd) Urine Opiates Screen Not Detected (NotDetected) Ur Oxycodone Screen Not Detected (NotDetected) Urine Methadone Screen Not Detected (NotDetected) Ur Barbiturates Screen Not Detected (NotDetected) U Tricyclic Antidepress Not Detected (NotDetected) Ur Phencyclidine Scrn Not Detected (NotDetected) Ur Amphetamines Screen Not Detected (NotDetected) U Methamphetamines Scrn Not Detected (NotDetected) U Benzodiazepines Scrn Not Detected (NotDetected) Urine Cocaine Screen Not Detected (NotDetected) U Marijuana (THC) Screen Detected H (NotDetected) SARS-CoV-2 (PCR) Not Detected (Not Detectd) Disposition <Sandoval Ortega - Last Filed: 11/24/23 15:12> Is patient prescribed a controlled substance at d/c from ED?: No <Lesia Chakraborty - Last Filed: 11/24/23 22:10> Clinical Impression: Depression Disposition: TRANSFER TO PSYCH HOSP/UNIT Condition: Serious Referrals: Jesus Carrillo MD [Primary Care Provider] - 1-2 days
[2023-11-24 15:35] VITALS: RESP 18
[2023-11-24 16:07] LABS: Amphetamine Screen,Urine Not Detected (NotDetected); Barbiturate Screen,Urine Not Detected (NotDetected); Benzodiazepines Screen,Urine Not Detected (NotDetected); Cocaine Screen,Urine Not Detected (NotDetected); Methadone Screen, Urine Not Detected (NotDetected); Opiate Screen,Urine Not Detected (NotDetected); Oxycodone Screen, Urine Not Detected (NotDetected); Phencyclidine Screen,Urine Not Detected (NotDetected); Tricyclic Antidepressant,Urine Not Detected (NotDetected); Urn Cannabinoid Scrn Detected (NotDetected)
[2023-11-24] MEDS ORDERED: MAG HYDROX/AL HYDROX/SIMETH 30 ML CUP PO PRN (22:56)
[2023-11-24] MEDS ORDERED: MAGNESIUM HYDROXIDE 2,400 MG/30 ML CUP PO PRN (22:56)
[2023-11-24] MEDS ORDERED: HALOPERIDOL LACTATE 5 MG/ML 1 ML VIAL IM PRN (22:59)
[2023-11-24] MEDS ORDERED: LORazepam 1 MG TAB PO PRN (22:59)
[2023-11-24] MEDS ORDERED: LORazepam 2 MG/ML INJ IM PRN (22:59)
[2023-11-25] MEDS: ACETAMINOPHEN TAB 325 MG TAB PO PRN (01:32)
[2023-11-25] MEDS ORDERED: NICOTINE 14MG/24HR PATCH TRANSDERM SCH (09:00)
[2023-11-25] MEDS ORDERED: hydrOXYzine pamoate 25 MG CAP PO PRN (12:22)
--- NOTE | 2023-11-25 12:56 | P.HP ---
Psychiatric H&P - . H&P Date: 11/25/23 History & Physical: Allergies Allergy/AdvReac Type Severity Reaction Status Date / Time lamotrigine [From Lamictal] Allergy Anaphylaxis Verified 11/24/23 16:36 nicotine [From Habitrol] Allergy Rash/Hives Verified 11/25/23 04:42 sertraline [From Zoloft] Allergy Anaphylaxis Verified 11/24/23 16:36 Vital Signs Temp 98.0 F 11/25/23 00:02 Pulse 63 11/25/23 00:02 Resp 18 11/25/23 00:02 BP 128/71 11/25/23 00:02 Pulse Ox 99 11/25/23 00:02 FiO2 Intake & Output 11/24/23 11/25/23 11/25/23 18:59 06:59 18:59 Weight 68.039 kg 67.614 kg Laboratory Last Values Urine HCG, Qual Not Detected (Not Detectd) 11/24/23 16:00 Urine Opiates Screen Not Detected (NotDetected) 11/24/23 15:41 Ur Oxycodone Screen Not Detected (NotDetected) 11/24/23 15:41 Urine Methadone Screen Not Detected (NotDetected) 11/24/23 15:41 Ur Barbiturates Screen Not Detected (NotDetected) 11/24/23 15:41 U Tricyclic Antidepress Not Detected (NotDetected) 11/24/23 15:41 Ur Phencyclidine Scrn Not Detected (NotDetected) 11/24/23 15:41 Ur Amphetamines Screen Not Detected (NotDetected) 11/24/23 15:41 U Methamphetamines Scrn Not Detected (NotDetected) 11/24/23 15:41 U Benzodiazepines Scrn Not Detected (NotDetected) 11/24/23 15:41 Urine Cocaine Screen Not Detected (NotDetected) 11/24/23 15:41 U Marijuana (THC) Screen Detected (NotDetected) H 11/24/23 15:41 SARS-CoV-2 (PCR) Not Detected (Not Detectd) 11/24/23 21:02 11/25/23 08:37 IDENTIFYING DATA: Patient is a 18-year-old female currently has 2 kids (2, 3 y/o), lives with her mother and children in a house, she is unemployed, 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 HPI: Patient presented to the hospital on 11/24. As per EPS note, "Pt was seen at her pcp office today and informed to come to the ER. She told her pcp that if she had a gun she would shoot herself. During assessment pt is calm and cooperative with RN. Pt appeared disheleved. Pt had a lack of eye contact and occasionally tearful. She denies current SI but repeats, "If I did have access or had a gun I would shoot myself without hesititation, it doesn't matter what my mood is". Pt had a recent suicide attempt in July via overdose and she was hospitalised at [facility]. She admits to increased depression. She uses cutting to harm herself, currently superficial cuts on bilateral forearms". Today, she states that she was at the doctor, and she states that "I scared the doctor that I saw" and then she said they told her if she didn't come to the ED willingly, they would force her to go. States she's thought about "If I had a gun, I'd kill myself" for years. Patient admits that her mood is up and down, and she does not have anxiety. When asked if she had thoughts of harming herself now, she stated "all the time" however, said that she does not have a plan. Stressors include trauma from when she was younger, 16 years ago, she just says "stuff" and will not elaborate on what. Patient admits to having poor sleep hygiene. Patient claims to eat only once a day. Patient denies any suicidal or homicidal ideations intent or plan. At this time patient denies any auditory states she has hallucinations of a black cat, and that everything "grows and shrinks" and "moves". Patient denies any flight of ideas racing thoughts and increased in goal directed behavior. Patient admits to using cigarettes and vapes. Denies drugs/alcohol. Patient UDS positive for marijuana. PAST PSYCHIATRIC HISTORY: Patient states that she has a history of anxiety and a mood disorder. Patient is currently on trazadone, visteral, invega and lexapro. Stopped 5 days ago, states that she feels "high" from them so she stopped. Claims that she was hospitalized previously [facility] when she was about 13 years old. Patient goes to [facility] for psychiatric outpatient follow-up. Claims that she has previous suicide attempts one where she held a knife to her throat and also a previous time when she overdosed. Last on this unit in May2022 Was in [facility] in July, due to OD on pills and alcohol. PMH:As per ER note ALLERGIES: as per EMR CHEMICAL DEPENDENCY HISTORY: as per HPI FAMILY PSYCHIATRIC/SUBSTANCE USE HISTORY: She claims that several family members have mental health problems however did not specify. SOCIAL HISTORY: Patient was born and raised in [facility], she claims that she completed her GED, she is currently unemployed. States that she has 2 kids, lives with her mother and her children in a house. She states that she is not having any legal history. MENTAL STATUS EXAM: General Appearance: Patient appears to be stated age is alert, directable, and attempts to cooperate. Poor eye contact. Patient appears to have fair hygiene and grooming. Colored hair, wearing street clothes Behavior: Patient is seated without any agitated behavior. Timid. Flat Poor eye contact, evasive. Speech: Patient's speech is fluent and nonpressured. Soft tone. Guarded Mood/Affect: Patient reports their mood is depressed and anxious, affect is congruent and constricted. Restricted Suicidality/Homicidality: Patient denies having any homicidal ideation intent or plan. Denies any suicidal ideations intent or plan Perceptions: Patient denies any visual hallucinations and denies any auditory h allucinations. Focused on side effects from medications Though content/process: There is no evidence of any delusional thought content and thought process is linear and goal-directed. Memory and concentration: AOX3, grossly intact for the purposes of this session. Can spell "WORLD" backwards Judgment and insight: poor STRENGTHS/WEAKNESSES: strength is that patient is resilient. Weakness is that patient has poor judgment and is impulsive INTELLECT: average IMPRESSIONS: Suicidal ideations borderline personality disorder PTSD nicotine dependance cannabis use disorder PLAN: -Patient is admitted under voluntary status to MHU for stabilization of psychiatric symptoms and safety. Patient has signed adult voluntary form and medication consent and is placed in patient's chart. -Medications : Lithobid 450mg qd for mood stabilization, Lexapro 10mg daily for depression/anxiety, seroquel 50mg qhs for sleep -Ativan and Haldol PRN for agitation/aggression -Patient was informed of the risks, benefits and side effects of the medication and patient verbally consented to taking the medications. -Internal Medicine consult to perform medical evaluation and physical. -NRT - nicotine patch -SW on board for discharge planning. Encourage patient to participate in groups to work on coping skills. 11/25/23 12:54
[2023-11-25] MEDS: LITHIUM CARBONATE ER 450 MG TABLET.ER PO SCH (13:12)
[2023-11-25] MEDS: ESCITALOPRAM 10 MG TAB PO SCH (13:12)
[2023-11-25 14:04] LABS: Appearance,Urine Turbid (Clear); Bilirubin,Urine Negative (Negative); Blood,Urine Negative (Negative); Budding Yeast,Urine Many /hpf; Color,Urine Yellow; Glucose,Urine (UA) Negative (Negative); Ketones,Urine Negative (Negative); Leukocyte Esterase,Urine Negative (Negative); Mucus,Urine Moderate /hpf; Nitrite,Urine Negative (Negative); PH, Urine 5.5 (5.0-8.0); Protein,Urine Trace (Negative); RBC,Urine 1 /hpf (0-5); Specific Gravity,Urine 1.031 (1.001-1.035); Squamous Epithelial Cell,Urine 1 /hpf (0-4); Urobilinogen,Urine <2.0 mg/dL (<2.0)
--- NOTE | 2023-11-25 20:13 | CONS ---
CONSULTATION CHIEF COMPLAINT: Major depression with suicidal thoughts. HISTORY OF PRESENT ILLNESS: First known admission to my service for this 18-year-old white female. She was in the office on the day of admission stating that she was very depressed, but not "suicidal." She did say, "If I had a gun I would kill myself." She was sent to the emergency room, evaluated and admitted. REVIEW OF SYSTEMS: She has had no headaches, neurologic problems, shortness of breath, chest pain, hypertension, heart disease, abdominal pain, nausea, vomiting, hematemesis, melena, hematochezia, jaundice, hepatitis, cirrhosis, hematuria, frequency, urgency, etc. Past medical history, family history, and personal and social histories reveal that she is allergic to Lamictal and Zoloft. MEDICATIONS: She has been on, 1. Hydroxyzine 50 mg once or twice at night. 2. Trazodone 100 mg 2 at night. 3. Lexapro 10 mg once a day. 4. Paliperidone 3 mg once a day. 5. Vitamin D. 6. control. Remainder of her history is essentially unremarkable. PHYSICAL EXAMINATION: VITAL SIGNS: Normal. HEAD, EARS, EYES, NOSE, MOUTH AND THROAT: Normal. CHEST: Clear. CARDIAC: Normal. ABDOMEN: Soft, nontender. EXTREMITIES: Normal except for some superficial lacerations on the left forearm. NEUROLOGICAL: She was intact. She had a depressed affect. ASSESSMENT: She is admitted to the hospital with diagnoses of: 1. Major depression. 2. Suicidal ideation. 3. Excoriations of the left forearm. RECOMMENDATIONS: None. Thank you respectfully, BUCKY / BENJAMIN: [id number] /
[2023-11-25] MEDS: QUEtiapine 50 MG TAB PO SCH (20:53)
[2023-11-26] MEDS: haloperidoL 5 MG TAB PO PRN (08:55)
[2023-11-26] MEDS: QUEtiapine 100 MG TAB PO SCH (22:22)
--- NOTE | 2023-11-26 22:52 | P.PN ---
Progress Note - Text Progress Note Date: 11/26/23 Interval History: The patient was seen today as coverage for Dr. Ortiz. Their chart was reviewed, and the case was discussed with the nursing staff. The patient reports improving sleep and appetite. The patient has been participating in few groups and other unit activities. The patient has been taking their psychiatric medications and denies side effects. The patient reports mood fluctuates with times feeling "very angry" and at times 'sad". No report so outburst of rage or agitation. No thoughts of hopeless or suicidal. No reports of manic symptoms. She reports delusions that she sees floor moves, and objects shrink and expand. Sometimes seeing people when closes her eyes and hear them talking to each other but not knowing what they talk about. MENTAL STATUS EXAM: General Appearance: Patient appears to be stated age is alert The patient was cooperative but poor eye contact. Patient appears to have fair hygiene and grooming. She is wearing street clothes Behavior: Patient is seated without any agitated behavior. Speech: Patient's speech is fluent and non pressured. Soft tone. Guarded Mood/Affect: Patient reports their mood is depressed and anxious, affect is congruent and constricted. Suicidal /Homicidal ideation: Patient denies having any homicidal ideation int ent or plan. Denies any suicidal ideation intent or plan Perceptions: Patient reports visual hallucinations and denies any auditory hallucinations. Though content/process: delusional thought content but thought process is linear and goal-directed. Memory and concentration: AOX3, grossly intact for the purposes of this session. Judgment and insight: limited STRENGTHS/WEAKNESSES: strength is that patient is resilient. Weakness is that patient has poor judgment and is impulsive INTELLECT: average IMPRESSIONS: Suicidal ideation Borderline personality disorder PTSD Nicotine dependance Cannabis use disorder PLAN: -Patient is admitted under voluntary status to MHU for stabilization of psychiatric symptoms and safety. Patient has signed adult voluntary form and medication consent and is placed in patient's chart. Continue inpatient psychiatric hospitalization. Implement the following precautions as recommended by the admitting psychiatrist: suicide, elopement Consult the medical team immediately if any medical concerns arise. Educate the patient on the benefits of participating in groups and other unit activities and encourage active participation. Lab work ordered: None Medications: Lithobid 450mg qd for mood stabilization Lexapro 10mg daily for depression/anxiety Increase Seroquel 100 mg qhs for sleep and to manage hallucinations. Pt. declined nicotine patch or gum. Continue PRN psychiatric Medications including Ativan and Haldol PRN for agitation/aggression Discharge planning is currently in progress.
[2023-11-27] MEDS ORDERED: traZODone HCL 50 MG TAB PO PRN (10:09)
[2023-11-27] MEDS: NICOTINE GUM (POLACRILEX) 2 MG GUM BUCCAL PRN (10:41)
[2023-11-27] MEDS: QUEtiapine 100 MG TAB PO SCH (21:05)
[2023-11-27] MEDS: traZODone HCL 50 MG TAB PO PRN (21:07)
[2023-11-28] MEDS ORDERED: QUEtiapine 100 MG TAB PO SCH (09:00)
--- NOTE | 2023-11-28 10:03 | P.PN ---
Progress Note - Text Progress Note Date: 11/28/23 Interval History: Patient was seen wandering the hallways, and was directable and agreeable to s peak with magnetic tape typewriter operator in the office. Patient claims that she is ok today. Appetite is good, sleep not so great. Section Hand Helper talked to patient about increasing her hs meds, patient agreeable. Patient spoke about intentionally making another patient mad on the unit by talking negatively about her pentecostalism. Counseled patient about the importance of being kind. Patient is attending groups. At this time time pat mariahnt denies any suicidal or homical ideations, intent or plan. Patient denies any auditory, visual hallucinations and denies any paranoia or delusions. Patient denies any side effects from the medications and has been compliant with meds. MENTAL STATUS EXAM: General Appearance: Patient appears to be stated age is alert, directable, and attempts to cooperate. improving eye contact. Patient appears to have fair hygiene and grooming. Colored hair, wearing street clothes Behavior: Patient is seated without any agitated behavior. Speech: Patient's speech is fluent and nonpressured. Guarded, improving Mood/Affect: Patient reports their mood is improivng mildly, affect is congruent and constricted. Suicidality/Homicidality: Patient denies having any homicidal ideation intent or plan. Denies any suicidal ideations intent or plan Perceptions: Patient denies any visual hallucinations and denies any auditory hallucinations. Though content/process: There is no evidence of any delusional thought content and thought process is linear and goal-directed. Memory and concentration: AOX3, grossly intact for the purposes of this session. Judgment and insight: improving IMPRESSIONS: Suicidal ideations borderline personality disorder PTSD nicotine dependance cannabis use disorder PLAN: -Patient is admitted under voluntary status to MHU for stabilization of psychiatric symptoms and safety. Patient has signed adult voluntary form and medication consent and is placed in patient's chart. -Medications : Lithobid 450mg qd for mood stabilization, Lexapro 10mg daily for depression/anxiety, increase seroquel 200mg qhs for sleep increase trazadone 100mg qhs -Check lithium level tomorrow morning. -Ativan and Haldol PRN for agitation/aggression -NRT - nicotine patch -SW on board for discharge planning. Encourage patient to participate in groups to work on coping skills. Plan for D/C tomorrow, if patient continues to improve.
--- NOTE | 2023-11-28 11:43 | P.PN ---
Progress Note - Text Progress Note Date: 11/27/23 Interval History: The patient was seen today as coverage for Dr. Ortiz. Their chart was reviewed, and the case was discussed with the nursing staff. The patient has been taking her psychiatric medications and denies any SEs. She reported had difficulties falling asleep, and didn't feel much help with the sleeping from increasing Seroquel last night. The patient reported Seroquel held with managing visual hallucinations and denied having any hallucinations today. The patient reported no suicidal or homicidal ideation. Patient reports fair appetite. No reports of manic symptoms and no delusions could be elicited. MENTAL STATUS EXAM: General Appearance: Patient appears to be stated age is alert The patient was cooperative but poor eye contact. Patient appears to have fair hygiene and grooming. She is wearing street clothes Behavior: Patient is seated without any agitated behavior. Speech: Patient's speech is fluent and non pressured. Soft tone. Guarded Mood/Affect: Patient reports their mood is "better", affect is congruent and constricted. Suicidal /Homicidal ideation: Patient denies having any homicidal ideation intent or plan. Denies any suicidal ideation intent or plan Perceptions: Patient denies visual hallucinations and denies any auditory hallucinations. Though content/process: delusional thought content but thought process is linear and goal-directed. Memory and concentration: AOX3, grossly intact for the purposes of this session. Judgment and insight: limited STRENGTHS/WEAKNESSES: strength is that patient is resilient. Weakness is that patient has poor judgment and is impulsive INTELLECT: average IMPRESSIONS: Suicidal ideation Borderline personality disorder PTSD Nicotine dependance Cannabis use disorder PLAN: -Patient is admitted under voluntary status to MHU for stabilization of psychiatric symptoms and safety. Patient has signed adult voluntary form and medication consent and is placed in patient's chart. Continue inpatient psychiatric hospitalization. Implement the following precautions as recommended by the admitting p sychiatrist: suicide, elopement Consult the medical team immediately if any medical concerns arise. Educate the patient on the benefits of participating in groups and other unit activities and encourage active participation. Lab work ordered: None Medications: Lithobid 450mg qd for mood stabilization Lexapro 10mg daily for depression/anxiety Increase Seroquel 150 mg qhs for sleep and to manage hallucinations. Start Trazodone 50 mg PO HS PRN for insomnia. Pt. declined nicotine patch or gum. Continue PRN psychiatric Medications including Ativan and Haldol PRN for agitation/aggression Discharge planning is currently in progress.
[2023-11-28] MEDS: QUEtiapine 200 MG TAB PO SCH (20:07)
[2023-11-28] MEDS: traZODone HCL 100 MG TAB PO SCH (20:07)
[2023-11-29 05:50] VITALS: BP 108/65; PULSE 73; TEMP 98.1
--- NOTE | 2023-11-29 11:13 | P.DS ---
Providers Date of admission: 11/24/23 22:52 Expected date of discharge: 11/29/23 Attending physician: Danny Ortiz MD Consults: 11/24/23 22:56 Consult Physician Routine Consulting Provider: Jesus Carrillo Consult Reason/Comments: H&P Do you want consulting provider notified?: Yes Primary care physician: Jesus Carrillo - Discharge Diagnosis(es) (1) Suicidal ideation Current Visit: Yes Status: Acute Priority: High (2) PTSD (post-traumatic stress disorder) Current Visit: Yes Status: Acute Priority: Medium (3) Borderline personality disorder Current Visit: No Status: Acute Priority: High (4) Cannabis use disorder Current Visit: No Status: Acute Priority: Medium (5) Nicotine dependence Current Visit: No Status: Acute Priority: Low Hospital Course: Admission HPI: Admission note was completed by travel writer "Patient presented to the hospital on 11/24. As per EPS note, "Pt was seen at her pcp office today and informed to come to the ER. She told her pcp that if she had a gun she would shoot herself. During assessment pt is calm and cooperative with RN. Pt appeared disheleved. Pt had a lack of eye contact and occasionally tearful. She denies current SI but repeats, "If I did have access or had a gun I would shoot myself without hesititation, it doesn't matter what my mood is". Pt had a recent suicide attempt in July via overdose and she was hospitalised at [facility]. She admits to increased depression. She uses cutting to harm herself, currently superficial cuts on bilateral forearms". Today, she states that she was at the doctor, and she states that "I scared the doctor that I saw" and then she said they told her if she didn't come to the ED willingly, they would force her to go. States she's thought about "If I had a gun, I'd kill myself" for years. Patient admits that her mood is up and down, and she does not have anxiety. When asked if she had thoughts of harming herself now, she stated "all the time" however, said that she does not have a plan. Stressors include trauma from when she was younger, 16 years ago, she just says "stuff" and will not elaborate on what. Patient admits to having poor sleep hygiene. Patient claims to eat only once a day. Patient denies any suicidal or homicidal ideations intent or plan. At this time patient denies any auditory states she has hallucinations of a black cat, and that everything "grows and shrinks" and "moves". Patient denies any flight of ideas racing thoughts and increased in goal directed behavior. Patient admits to using cigarettes and vapes. Denies drugs/alcohol. Patient UDS positive for marijuana." Hospital course: Upon admission to the unit patient was directable and agreeable to commence treatment and signed adult voluntary form. Patient got along well with other patients on the unit and followed unit protocol. Patient was compliant with the medications and denied any side effects throughout hospital course. Patient was started on Lithobid 450 mg daily for mood stabilization/suicidal ideations, Lexapro 10 mg daily for mood/anxiety, Seroquel was increased to a dose of 200 mg nightly for mood/insomnia, trazodone was increased to dose of 100 mg nightly for sleep/mood. Patient had a lithium level checked on morning prior to discharge which was 0.6. Patient spoke of her stressors and engaged in therapy both group and individual. Patient was also seen by medical team for history and physical exam. Throughout the course of the hospitalization patient gradually improved with regards to mood, anxiety, suicidal ideations, impulsivity, sleep and returned back to their baseline level of functioning. On the day of discharge patient denied any suicidal or homicidal ideations intent or plan denied any auditory or visual hallucinations. Patient endorsed wanting to live for her kids and her future. The patient denied any access to guns or weapons. Patient denied any paranoia and did not endorse any delusions. Patient does have a significant history of substance abuse and was counseled on abstaining from all substances including alcohol and marijuana. Patient was offered however declined inpatient substance-abuse rehab. Patient was also counseled on the medications and need for regular compliance and was encouraged to follow-up with their outpatient appointment for mental health and also for primary care. Prior to discharge a family meeting will be arranged by social work program coordinator to answer any questions and ensure safety upon discharge. Social work also to ensure that there are no guns and weapons in the house. Mental status exam: General Appearance: Patient appears to be have short hair, stated age is alert, pleasant, and cooperative. Patient is in no acute distress and has improved hygiene and grooming Behavior: Patient is calmly seated without any agitated behavior. Speech: Patient's speech is fluent and nonpressured. Mood/Affect: Patient reports their mood is "good", affect is congruent and euthymic. Suicidality/Homicidality: Patient denies having any suicidal or homicidal ideation intent or plan. Perceptions: Patient denies any auditory or visual hallucinations. Though content/process: There is no evidence of any delusional thought content and thought process is linear and goal-directed. More future oriented Memory and concentration: AOX3, grossly intact for the purposes of this session. Can spell "WORLD" backwards correctly. Judgment and insight: Chronically poor, however has improved with guarded prognosis Impression: Suicidal ideations borderline personality disorder PTSD nicotine dependance cannabis use disorder Plan: -Continue with discharge today as patient has improved and stabilized psychiatrically and is not currently an imminent threat to herself and/or others. Patient will remain at chronically elevated risk for harm to self and/or others due to her impulsivity and substance abuse. -Continue medications: Lithobid 450 mg daily for mood stabilization/suicidal ideations, Lexapro 10 mg daily for mood/anxiety, Seroquel 200 mg nightly for sleep/mood stabilization, trazodone 100 mg nightly for mood/insomnia. -Patient was counseled on the need for medication compliance and appropriate follow-up at mental health and also primary care for medical issues. Patient verbalized understanding and agreed. -Social work to arrange for and conduct family meeting to ensure safety upon discharge and answer any questions/concerns. Social work also to arrange for patients follow up appointments with [facility] for psychiatric care along with follow up with primary care provider. It was recommended that patient enroll in DBT therapy with [facility] upon discharge. -Patient counseled on abstaining from recreational drugs and marijuana and alcohol. Was informed/educated on the adverse effects on their physical and mental health. Patient verbally agreed and understood. Patient was offered substance abuse treatment however declined at this time. -Patient was instructed to return to the hospital or seek immediate medical care if their psychiatric or medical symptoms do worsen or reoccur. Allergies Allergy/AdvReac Type Severity Reaction Status Date / Time lamotrigine from Lamictal Allergy Anaphylaxis Verified 11/24/23 16:36 nicotine from Habitrol Allergy Rash/Hives Verified 11/25/23 04:42 sertraline from Zoloft Allergy Anaphylaxis Verified 11/24/23 16:36 Laboratory Results Urine Color Yellow 11/24/23 15:41 Urine Appearance Turbid (Clear) H 11/24/23 15:41 Urine pH 5.5 (5.0-8.0) 11/24/23 15:41 Ur Specific [place] 1.031 (1.001-1.035) 11/24/23 15:41 Urine Protein Trace (Negative) H 11/24/23 15:41 Urine Glucose (UA) Negative (Negative) 11/24/23 15: Urine Ketones Negative (Negative) 11/24/23 15: Urine Blood Negative (Negative) 11/24/23: Urine Nitrite Negative (Negative) 11/24/23: Urine Bilirubin Negative (Negative) 11/24/23 15:41 Urine Urobilinogen <2.0 mg/dL (<2.0) 11/24/23 15:41 Ur Leukocyte Esterase Negative (Negative) 11/24/23 15: Urine RBC 1 /hpf (0-5) 11/24/23 15:41 Ur Squamous Epith Cells 1 /hpf (0-4) 11/24/23 15:41 Urine Mucus Moderate /hpf (None) H 11/24/23 15:41 Urine Yeast (Budding) Many /hpf (None) H 11/24/23 15:41 Urine HCG, Qual Not Detected (Not Detectd) 11/24/23 16:00 Urine Opiates Screen Not Detected (NotDetected) 11/24/23 15:41 Ur Oxycodone Screen Not Detected (NotDetected) 11/24/23 15:41 Urine Methadone Screen Not Detected (NotDetected) 11/24/23 15:41 Ur Barbiturates Screen Not Detected (NotDetected) 11/24/23 15:41 U Tricyclic Antidepress Not Detected (NotDetected) 11/24/23 15:41 Ur Phencyclidine Scrn Not Detected (NotDetected) 11/24/23 15:41 Ur Amphetamines Screen Not Detected (NotDetected) 11/24/23 15:41 U Methamphetamines Scrn Not Detected (NotDetected) 11/24/23 15:41 U Benzodiazepines Scrn Not Detected (NotDetected) 11/24/23 15:41 Urine Cocaine Screen Not Detected (NotDetected) 11/24/23 15:41 U Marijuana (THC) Screen Detected (NotDetected) H 11/24/23 15:41 SARS-CoV-2 (PCR) Not Detected (Not Detectd) 11/24/23 21:02 Vital Signs Temp 98.1 F 11/29/23 05:28 Pulse 73 11/29/23 05:28 Resp 18 11/25/23 00:02 BP 108/65 11/29/23 05:28 Pulse Ox 99 11/25/23 00:02 FiO2 Patient Condition at Discharge: Serious Plan - Discharge Summary Discharge Rx Participant: No New Discharge Prescriptions: [place] Carbonate ER [Lithobid] 450 mg PO DAILY 14 Days #14 tab QUEtiapine [SEROquel] 200 mg PO HS 14 Days #14 tab traZODone HCL [Desyrel] 100 mg PO HS 14 Days #14 tab Escitalopram [Lexapro] 10 mg PO DAILY 14 Days #14 tab Nicotine Gum (Polacrilex) [Nicorette] 2 mg BUCCAL Q4HR PRN 30 Days #180 pieceofgum PRN Reason: Nicotine Cravings Continue Cholecalciferol [Vitamin D3 (25 Mcg = 1000 Iu)] 25 mcg PO DAILY norethindrone-e.estradioL-iron [Junel Fe 1 mg-20 Mcg Tablet] 1 tab PO DAILY Discontinued hydrOXYzine HCL [Atarax] 100 mg PO HS PRN PRN Reason: Insomnia Paliperidone [Invega] 3 mg PO HS Escitalopram Oxalate [Lexapro] 10 mg PO HS traZODone HCL [Trazodone HCl] 300 mg PO HS hydrOXYzine HCL [Atarax] 25 mg PO BID Discharge Medication List Cholecalciferol [Vitamin D3 (25 Mcg = 1000 Iu)] 25 mcg PO DAILY 05/25/23 [History] norethindrone-e.estradioL-iron [Junel Fe 1 mg-20 Mcg Tablet] 1 tab PO DAILY 11/24/23 [History] Escitalopram [Lexapro] 10 mg PO DAILY 14 Days #14 tab 11/29/23 [Rx] [place] Carbonate ER [Lithobid] 450 mg PO DAILY 14 Days #14 tab 11/29/23 [Rx] Nicotine Gum (Polacrilex) [Nicorette] 2 mg BUCCAL Q4HR PRN 30 Days #180 pieceofgum 11/29/23 [Rx] QUEtiapine [SEROquel] 200 mg PO HS 14 Days #14 tab 11/29/23 [Rx] traZODone HCL [Desyrel] 100 mg PO HS 14 Days #14 tab 11/29/23 [Rx] Follow up Appointment(s)/Referral(s): [facility] [Outside] - 12/09/23 1:00 pm (12/09/2023 1:00PM - 2:00PM [facility] 12/14/2023 9:00AM - 9:30AM KELLY BRADFORD ) Jesus Carrillo MD [Primary Care Provider] - 1-2 days Activity/Diet/Wound Care/Special Instructions: Avoid the use of street drugs and alcohol. Take all medications as prescribed. When you are in need of refills on your medications, please contact your medical provider and/or outpatient psychiatrist/provider to have this done. Please go to your scheduled outpatient appointment for aftercare treatment. If symptoms return or become worse, call the crisis line at and/or go to the nearest emergency room for evaluation. National Suicide Hotline 538. Discharge Disposition: HOME SELF-CARE
== END 2023-11-29 12:07 | disposition home or self-care (01) | DRG 755 ==
LOC: EC 15:01 → 3MHU 22:52
PROVIDERS: ADMIT Psychiatry & Neurology Psychiatry; ATTEND Psychiatry & Neurology Psychiatry
DX: F43.10 Post-traumatic stress disorder, unspecified (principal); F12.10 Cannabis abuse, uncomplicated; F60.3 Borderline personality disorder; X78.9XXA Intentional self-harm by unspecified sharp object, initial encounter; Z11.52 Encounter for screening for COVID-19; S51.812A Laceration without foreign body of left forearm, initial encounter; S51.811A Laceration without foreign body of right forearm, initial encounter; Z28.310 Unvaccinated for COVID-19; G47.00 Insomnia, unspecified; F17.290 Nicotine dependence, other tobacco product, uncomplicated; F17.210 Nicotine dependence, cigarettes, uncomplicated; F17.220 Nicotine dependence, chewing tobacco, uncomplicated; Z71.6 Tobacco abuse counseling; Z79.3 Long term (current) use of hormonal contraceptives; Z79.899 Other long term (current) drug therapy; Z56.0 Unemployment, unspecified; Z59.6 Low income; Z71.41 Alcohol abuse counseling and surveillance of alcoholic; Z71.51 Drug abuse counseling and surveillance of drug abuser; Z91.51 Personal history of suicidal behavior; Z88.8 Allergy status to other drugs, medicaments and biological substances
CPT/HCPCS: 80178; 80306; 81001; 81025; 82075; 87635; 99285

== ENCOUNTER 2024-02-14 13:59 | Emergency (ER) | payer MEDICAID, OTHER ==
--- NOTE | 2024-02-14 14:20 | ED ---
General Adult HPI - General Chief complaint: Skin/Abscess/Foreign Body Stated complaint: Rash Time Seen by Provider: 02/14/24 14:08 Source: patient, RN notes reviewed Mode of arrival: ambulatory Limitations: no limitations - History of Present Illness Initial comments: 18-year-old female presents emergency department complaint of a rash. Mom patient states that her last couple days she was concerned it was related to her sunburn that happened several days ago and has resolved. She states she is itchy at time denies any difficulty breathing no other complaints. - Related Data Home Medications Medication Instructions Recorded Confirmed Cholecalciferol [Vitamin D3 (25 25 mcg PO DAILY 05/25/23 11/24/23 Mcg = 1000 Iu)] norethindrone-e.estradioL-iron 1 tab PO DAILY 11/24/23 11/24/23 [Junel Fe 1 mg-20 Mcg Tablet] Previous Rx's Medication Instructions Recorded Escitalopram [Lexapro] 10 mg PO DAILY 14 Days #14 tab 11/29/23 [place] Carbonate ER [Lithobid] 450 mg PO DAILY 14 Days #14 tab 11/29/23 Nicotine Gum (Polacrilex) 2 mg BUCCAL Q4HR PRN 30 Days #180 11/29/23 [Nicorette] pieceofgum QUEtiapine [SEROquel] 200 mg PO HS 14 Days #14 tab 11/29/23 traZODone HCL [Desyrel] 100 mg PO HS 14 Days #14 tab 11/29/23 predniSONE 50 mg PO DAILY #5 tab 02/14/24 Allergies Allergy/AdvReac Type Severity Reaction Status Date / Time lamotrigine [From Lamictal] Allergy Anaphylaxis Verified 02/14/24 14:04 nicotine [From Habitrol] Allergy Rash/Hives Verified 02/14/24 14:04 sertraline [From Zoloft] Allergy Anaphylaxis Verified 02/14/24 14:04 Review of Systems ROS Statement: Those systems with pertinent positive or pertinent negative responses have been documented in the HPI. ROS Other: All systems not noted in ROS Statement are negative. Past Medical History Past Medical History: No Reported History History of Any Multi-Drug Resistant Organisms: None Reported Past Surgical History: Section Additional Past Surgical History / Comment(s): Hx 2 c-sections Past Anesthesia/Blood Transfusion Reactions: No Reported Reaction Past Psychological History: Anxiety, Depression Smoking Status: Current every day smoker, Vaper - Past Family History Mother Family Medical History: No Reported History Additional Family Medical History / Comment(s): Hx Lupus General Exam Limitations: no limitations General appearance: alert, in no apparent distress Head exam: Present: atraumatic, normocephalic, normal inspection Eye exam: Present: normal appearance, PERRL, EOMI. Absent: scleral icterus, conjunctival injection, periorbital swelling ENT exam: Present: normal exam, normal oropharynx, mucous membranes moist Neck exam: Present: normal inspection, full ROM. Absent: tenderness, meningismus, lymphadenopathy Respiratory exam: Present: normal lung sounds bilaterally. Absent: respiratory distress, wheezes, rales, rhonchi, stridor Cardiovascular Exam: Present: regular rate, normal rhythm, normal heart sounds. Absent: systolic murmur, diastolic murmur, rubs, gallop, clicks Neurological exam: Present: alert, oriented X3, CN II-XII intact Skin exam: Present: rash Course Vital Signs 02/14/24 02/14/24 14:02 14:28 Temperature 98.8 F 98.7 F Pulse Rate 103 H 100 Respiratory 18 18 Rate Blood Pressure 119/72 118/81 O2 Sat by Pulse 97 98 Oximetry Medical Decision Making - Medical Decision Making Oh Was pt. sent in by a medical professional or institution ([facility], PUSHER OPERATOR, urgent care, hospital, or care home...) When possible be specific @ -No Did you speak to anyone other than the patient for history (EMS, parent, family, police, friend...)? What history was obtained from this source @ -No Did you review nursing and triage notes (agree or disagree)? Why? @ -I reviewed and agree with nursing and triage notes Were old charts reviewed (outside hosp., previous admission, EMS record, old EKG, old radiological studies, urgent care reports/EKG's, care home records)? Report findings @ -No old charts were reviewed Differential Diagnosis (chest pain, altered mental status, abdominal pain women, abdominal pain men, vaginal bleeding, weakness, fever, dyspnea, syncope, headache, dizziness, GI bleed, back pain, seizure, CVA, palpatations, mental health, musculoskeletal)? @ -Allergic reaction, dermatitis, medication reaction EKG interpreted by me (3pts min.). @ -None X-rays interpreted by me (1pt min.). @ -None done CT interpreted by me (1pt min.). @ -None done U/S interpreted by me (1pt. min.). @ -None done What testing was considered but not performed or refused? (CT, X-rays, U/S, labs)? Why? @ -None What meds were considered but not given or refused? Why? @ -None Did you discuss the management of the patient with other professionals (professionals i.e. , PA, PUSHER OPERATOR, lab, RT, psych nurse, dialysis social worker, technical customer support specialist, teacher, chief business officer, foster care case manager)? Give summary @ -No Was smoking cessation discussed for >3mins.? @ -No Was critical care preformed (if so, how long)? @ -No Were there social determinants of health that impacted care today? How? (Homelessness, low income, unemployed, alcoholism, drug addiction, transportation, low edu. Level, literacy, decrease access to med. care, assisted, rehab)? @ -No Was there de-escalation of care discussed even if they declined (Discuss DNR or withdrawal of care, Hospice)? DNR status @ -No What co-morbidities impacted this encounter? (DM, HTN, Smoking, COPD, CAD, Cancer, CVA, ARF, Chemo, Hep., AIDS, mental health diagnosis, sleep apnea, morbid obesity)? @ -None Was patient admitted / discharged? Hospital course, mention meds given and route, prescriptions, significant lab abnormalities, going to OR and other pertinent info. @ -Discharge patient has a rash is acutely appears to be related to some sort of dermatitis we discharged with steroids and histamines. Undiagnosed new problem with uncertain prognosis? @ -No Drug Therapy requiring intensive monitoring for toxicity (Heparin, Nitro, Insulin, Cardizem)? @ -No Were any procedures done? @ -No Diagnosis/symptom? @ -Dermatitis Acute, or Chronic, or Acute on Chronic? @ -Acute Uncomplicated (without systemic symptoms) or Complicated (systemic symptoms)? @ -Uncomplicated Side effects of treatment? @ -No Exacerbation, Progression, or Severe Exacerbation? @ -No Poses a threat to life or bodily function? How? (Chest pain, [place], CA, pneumonia, PE, COPD, DKA, ARF, appy, cholecystitis, CVA, Diverticulitis, Homicidal, Suicidal, threat to staff... and all critical care pts) @ -No Disposition Clinical Impression: Dermatitis Disposition: HOME SELF-CARE Condition: Stable Instructions (If sedation given, give patient instructions): Dermatitis (ED) Additional Instructions: Please return to the Emergency Department if symptoms worsen or any other concerns. Prescriptions: predniSONE 50 mg PO DAILY #5 tab Is patient prescribed a controlled substance at d/c from ED?: No Referrals: Jesus Carrillo MD [Primary Care Provider] - 1-2 days Time of Disposition: 14:20
[2024-02-14 15:13] VITALS: BP 118/81; PULSE 100; RESP 18; TEMP 98.7
== END 2024-02-14 14:43 | disposition home or self-care (01) ==
LOC: EC 13:59
DX: L30.9 Dermatitis, unspecified (principal); F17.290 Nicotine dependence, other tobacco product, uncomplicated; Z88.8 Allergy status to other drugs, medicaments and biological substances
CPT/HCPCS: 99282

== ENCOUNTER 2024-05-20 13:09 | Emergency (ER) | payer OTHER ==
[2024-05-20] MEDS ORDERED: ONDANSETRON ODT 4 MG TAB ONE (13:35)
== END 2024-05-20 13:44 | disposition home or self-care (01) ==
LOC: EC 13:09
DX: R11.0 Nausea (principal)
CPT/HCPCS: 99282

== ENCOUNTER 2024-05-24 03:29 | Inpatient (IN) | payer MEDICAID, OTHER ==
[2024-05-24] MEDS ORDERED: NICOTINE 21MG/24HR PATCH TRANSDERM ONE (07:45)
[2024-05-24] MEDS ORDERED: ESCITALOPRAM 10 MG TAB ONE (13:44)
[2024-05-24] MEDS ORDERED: LORazepam 1 MG TAB ONE (15:26)
[2024-05-24] MEDS ORDERED: QUEtiapine 200 MG TAB ONE (19:46)
[2024-05-24] MEDS ORDERED: traZODone HCL 50 MG TAB ONE (19:46)
[2024-05-24] MEDS ORDERED: LITHIUM CARBONATE 150 MG CAP ONE (19:46)
[2024-05-25] MEDS ORDERED: ESCITALOPRAM 10 MG TAB ONE (08:00)
[2024-05-25] MEDS ORDERED: LITHIUM CARBONATE 150 MG CAP ONE (08:00)
[2024-05-25] MEDS ORDERED: NICOTINE 21MG/24HR PATCH TRANSDERM ONE (08:00)
[2024-05-26] MEDS ORDERED: diphenhydrAMINE 50 MG CAP ONE (03:13)
[2024-05-26] MEDS ORDERED: NICOTINE 21MG/24HR PATCH TRANSDERM ONE (07:46)
[2024-05-26] MEDS ORDERED: LITHIUM CARBONATE 150 MG CAP ONE (07:47)
[2024-05-26] MEDS ORDERED: ESCITALOPRAM 10 MG TAB ONE (07:47)
[2024-05-26] MEDS ORDERED: ACETAMINOPHEN TAB 325 MG TAB ONE (10:37)
[2024-05-27] MEDS ORDERED: ACETAMINOPHEN TAB 325 MG TAB ONE ×2 (13:29→22:54)
[2024-05-27] MEDS ORDERED: PRENATAL VIT-IRON-FOLIC ACID 1 EACH TABLET ONE (23:59)
[2024-05-28] MEDS ORDERED: ACETAMINOPHEN TAB 325 MG TAB ONE ×2 (08:33→20:46)
[2024-05-28] MEDS ORDERED: PYRIDOXINE 50 MG TAB ONE (23:59)
[2024-05-28] MEDS ORDERED: PRENATAL VIT-IRON-FOLIC ACID 1 EACH TABLET ONE (23:59)
[2024-05-29] MEDS ORDERED: ESCITALOPRAM 10 MG TAB ONE (14:57)
[2024-05-29] MEDS ORDERED: PYRIDOXINE 50 MG TAB ONE (23:59)
[2024-05-30] MEDS ORDERED: ACETAMINOPHEN TAB 325 MG TAB ONE (00:45)
[2024-05-30] MEDS ORDERED: NICOTINE 21MG/24HR PATCH TRANSDERM ONE (07:49)
[2024-05-30] MEDS ORDERED: ESCITALOPRAM 10 MG TAB ONE (07:49)
--- NOTE | 2024-06-05 11:01 | US ---
Patient Anca Bear ID 2005 Order # EXAMINATION TYPE: Pelvic ultrasound. DATE OF EXAM: 05/26/2024 10:46 AM COMPARISON: No comparison available on downtime PACS. CLINICAL INDICATION: (+) HCG EXAM PERFORMED: Transvaginal (TV) and Transabdominal (TA) EXAM MEASUREMENTS: GESTATIONAL AGE / DATING Physician Established: ( weeks/ days) EDC: Dates by LMP: ( weeks/ days) EDC: Dates by First Scan: ( weeks/ days) EDC: Dates by Current Scan for: Tibes-rump length (8 weeks/4 days) EDC: MATERNAL ANATOMY Uterus: 11.5 x 6.8 x 7.4 Right Ovary: 2.9 x 2.2 x 2.6 Left Ovary: 2.5 x 2.1 x 2.0 Post CDS / Adnexa: Presence of free fluid: Presence of corpus luteal cyst: Presence of subchorionic bleed: GESTATION / SURVEY CRL: 19.82 mm (8 weeks/4 days) MSD: ( weeks/ days) Yolk Sac (normal less than 6mm): 0.4 Heart Rate: 169 bpm Rhythm: Regular IUP: Single Date of LMP: Irregular, unknown Beta HcG (if available): IMPRESSION: 1. Single intrauterine gestation estimated weeks 4 days gestation based on crown-rump length. Cardiac activity measures 169 bpm.
--- NOTE | 2024-07-14 11:15 | PN ---
PROGRESS NOTE CHIEF COMPLAINT: Major depression with suicidal thoughts. HISTORY OF PRESENT ILLNESS: This lady presented to the emergency room with suicidal thoughts and major depression, was admitted to [facility]. REVIEW OF SYSTEMS: She has no medical complaints. PHYSICAL EXAMINATION: VITAL SIGNS: Normal. HEAD, EARS, EYES, NOSE, MOUTH AND THROAT: Normal. : Normal. ABDOMEN: Soft. EXTREMITIES: Normal. IMPRESSION: 1. Major depression. 2. Suicidal personality. PLAN: Continue with the present psychiatric management until she is felt safe enough to be discharged. MMODL / IJN: [id number] /
== END 2024-05-30 11:58 | disposition home or self-care (01) | DRG 751 ==
LOC: 3MHU 03:29 → UNDOADMIN 12:34 → DISRECOVER 12:34 → UNDODISIN 05-30 11:58
PROVIDERS: ADMIT Psychiatry & Neurology Psychiatry; ATTEND Psychiatry & Neurology Psychiatry
DX: F33.2 Major depressive disorder, recurrent severe without psychotic features (principal); Z33.1 Pregnant state, incidental; R45.851 Suicidal ideations; R45.850 Homicidal ideations; F17.200 Nicotine dependence, unspecified, uncomplicated; R45.1 Restlessness and agitation; Z79.52 Long term (current) use of systemic steroids; Z79.899 Other long term (current) drug therapy
CPT/HCPCS: 76801; 80061; 83036; 99285

== ENCOUNTER 2024-12-24 08:18 | Inpatient (IN) | payer OTHER ==
[2024-12-24] MEDS ORDERED: METHYLERGONOVINE 0.2 MG/ML 1 ML AMP IM PRN (08:34)
[2024-12-24] MEDS ORDERED: OXYTOCIN 10 UNIT/ML 1 ML VIAL IM PRN (08:34)
[2024-12-24] MEDS ORDERED: miSOPROStoL 200 MCG TAB PO PRN (08:34)
[2024-12-24] MEDS ORDERED: TRANEXAMIC 1,000 MG/100ML-NACL 1,000 MG in EMPTY BAG 1 BAG IV PRN (08:34)
[2024-12-24] MEDS ORDERED: CARBOPROST TROMETHAMINE 250 MCG/ML 1 ML AMP IM PRN (08:34)
--- NOTE | 2024-12-24 08:45 | P.HPOB ---
History of Present Illness H&P Date: 12/24/24 Chief Complaint: repeat low transverse 19-year-old G3, P2 presents for repeat low-transverse Review of Systems All systems: negative Constitutional: Denies chills, Denies fever Eyes: denies blurred vision, denies pain Ears, nose, mouth and throat: Denies headache, Denies sore throat Cardiovascular: Denies chest pain, Denies shortness of breath Respiratory: Denies cough Gastrointestinal: Denies abdominal pain, Denies diarrhea, Denies nausea, Denies vomiting Genitourinary: Denies dysuria, Denies hematuria Musculoskeletal: Denies myalgias Integumentary: Denies pruritus, Denies rash Neurological: Denies numbness, Denies weakness Psychiatric: Denies anxiety, Denies depression Endocrine: Denies fatigue, Denies weight change Past Medical History Past Medical History: No Reported History History of Any Multi-Drug Resistant Organisms: None Reported Past Surgical History: Section Additional Past Surgical History / Comment(s): Hx 2 c-sections Past Anesthesia/Blood Transfusion Reactions: No Reported Reaction Past Psychological History: Anxiety, Depression Smoking Status: Current every day smoker, Vaper - Past Family History Mother Family Medical History: No Reported History Additional Family Medical History / Comment(s): Hx Lupus Medications and Allergies Home Medications Medication Instructions Recorded Confirmed Type No Known Home Medications 12/24/24 12/24/24 History Allergies Allergy/AdvReac Type Severity Reaction Status Date / Time lamotrigine [From Lamictal] Allergy Anaphylaxis Verified 12/24/24 08:32 sertraline [From Zoloft] Allergy Anaphylaxis Verified 12/24/24 08:32 Exam Osteopathic Statement: *. No significant issues noted on an osteopathic structural exam other than those noted in the History and Physical/Consult. Intake and Output 12/23/24 12/24/24 12/24/24 22:59 06:59 14:59 Other: Weight 72.575 kg Heart: Regular rate and rhythm Lungs: Clear to auscultation bilaterally Abdomen: Soft, nontender Extremities: Negative Homans sign Assessment and Plan (1) Borderline personality disorder Current Visit: No Status: Acute Priority: High Code(s): F60.3 - BORDERLINE PERSONALITY DISORDER SNOMED Code(s): 25706918 (2) Cannabis use disorder Current Visit: No Status: Acute Priority: Medium Code(s): F12.90 - CANNABIS USE, UNSPECIFIED, UNCOMPLICATED SNOMED Code(s): 00055458 (3) Depression Current Visit: No Status: Acute Code(s): F32.A - DEPRESSION, UNSPECIFIED SNOMED Code(s): 40341685 (4) 39 weeks gestation of Narrative/Plan: 1. Repeat low-transverse 2. Will get social work consult while patient is here Current Visit: No Status: Resolved Code(s): Z3A.39 - 39 WEEKS GESTATION OF SNOMED Code(s): 32790367 (5) Previous section Current Visit: No Status: Resolved Code(s): Z98.891 - HISTORY OF UTERINE SCAR FROM PREVIOUS SURGERY SNOMED Code(s): 352046921
[2024-12-24] MEDS: LACTATED RINGERS 1,000 ML IV ONE (09:00)
[2024-12-24 09:25] LABS: Basophils % (A) 0 %; Eosinophils # (A) 0.2 k/uL (0-0.7); Eosinophils % (A) 2 %; HCT 33.8 % (34.0-46.0); HGB 10.4 gm/dL (11.4-16.0); Hypochromasia Slight; Lymphocytes # (A) 1.9 k/uL (1.0-4.8); Lymphocytes % (A) 19 %; MCH 27.5 pg (25.0-35.0); MCHC 30.8 g/dL (31.0-37.0); MCV 89.2 fL (80.0-100.0); Mean Platelet Volume 7.5; Monocytes # (A) 0.5 k/uL (0-1.0); Monocytes % (A) 5 %; Neutrophils # (A) 7.5 k/uL (1.3-7.7); Neutrophils % (A) 73 %; Platelet Count 293 k/uL (150-450); RBC 3.79 m/uL (3.80-5.40); RDW 15.9 % (11.5-15.5); WBC 10.3 k/uL (3.8-10.6)
[2024-12-24] MEDS: CITRIC ACID-SODIUM CITRATE 15 ML CUP PO ONE (09:44)
[2024-12-24 10:21] LABS: Amphetamine Screen,Urine Not Detected (NotDetected); Barbiturate Screen,Urine Not Detected (NotDetected); Benzodiazepines Screen,Urine Not Detected (NotDetected); Cocaine Screen,Urine Not Detected (NotDetected); Methadone Screen, Urine Not Detected (NotDetected); Opiate Screen,Urine Not Detected (NotDetected); Oxycodone Screen, Urine Not Detected (NotDetected); Phencyclidine Screen,Urine Not Detected (NotDetected); Tricyclic Antidepressant,Urine Not Detected (NotDetected); Urn Cannabinoid Scrn Detected (NotDetected)
[2024-12-24] MEDS ORDERED: ONDANSETRON 4 MG/2 ML VIAL IVP PRN (10:41)
[2024-12-24] MEDS ORDERED: diphenhydrAMINE 50 MG/ML 1 ML VIAL IVP PRN (10:41)
[2024-12-24] MEDS ORDERED: diphenhydrAMINE 25 MG CAP PO PRN (10:41)
[2024-12-24] MEDS ORDERED: ZOLPIDEM 5 MG TAB PO PRN (10:41)
[2024-12-24] MEDS ORDERED: NALOXONE 0.4 MG/ML 1 ML VIAL IV PRN (10:41)
[2024-12-24] MEDS ORDERED: LANOLIN CREAM 1 GM TUBE TOPICAL PRN (10:41)
[2024-12-24] MEDS ORDERED: METOCLOPRAMIDE 5 MG/ML 2 ML VIAL IVP PRN (10:41)
--- NOTE | 2024-12-24 10:41 | P.OP ---
Date of Procedure: 12/24/24 Preoperative Diagnosis: 1. at 39 weeks 2. previous Postoperative Diagnosis: same Procedure(s) Performed: Repeat low-transverse Anesthesia: spinal Surgeon: Yamini Bangura Sound Tester #1: Yisel Goode Estimated Blood Loss (ml): 300 IV fluids (ml): 500 Urine output (ml): 50 Pathology: none sent Condition: stable Disposition: floor Operative Findings: Viable female, Apgars 9, 9, weight pending. Normal uterus, tubes, ovaries Description of Procedure: Patient was taken to the operating room where spinal anesthesia was found be adequate. She was prepped and draped in normal sterile fashion in dorsal supine position with a leftward tilt. Pfannenstiel skin incision was made the scalpel and carried through to the underlying layer of fascia with the scalpel. Fascia was incised in midline and carried bilaterally with the Alvarez scissors. The superior aspect of the fascial incision was grasped with Yara clamps elevated and the underlying rectus muscles dissected off with the Alvarez's. Attention was then turned to inferior aspect of same incision which in a similar fashion was grasped tented up and the underlying rectus muscles dissected off with the Alvarez's. The rectus muscles were the midline and the peritoneum was identified tented up and entered sharply with the scalpel. The incision was extended superiorly and inferiorly with good visualization of the bladder. The bladder blade was inserted and the vesicouterine peritoneum was incised the Metzenbaums then carried bilaterally and bladder flap created digitally. A low transverse incision was then made on the uterus with the scalpel. This was carried bilaterally and digital manner. Infant's head delivered atraumatically, nose and mouth bulb suctioned, cord clamped and cut, handed off to waiting nurses. Apgars 9,9, weight pending. Placenta delivered manually, intact with three-vessel cord. The uterus is exteriorized and cleared of all clots and debris. The uterine incision was closed with 0 Vicryl in a running locked fashion. Second layer of the same sutures used in imbricating fashion to obtain excellent hemostasis. Both ovaries and tubes appeared normal. The uterus was placed back into the abdomen. The muscles were reapproximated using 2-0 Vicryl in interrupted fashion. The fascia was reapproximated using 0 Vicryl in a running fashion. The subcutaneous tissues closed with 3-0 Vicryl running fashion. The skin was closed tennille. Patient tolerated the procedure well, sponge and instrument counts were correct times 2 and she was taken to the recovery room in stable condition.
[2024-12-24] MEDS: OXYTOCIN 30 UNITS/500 ML NS 30 UNIT in SALINE 1 500ML.BAG IV SCH (11:21)
[2024-12-24] MEDS: diphenhydrAMINE 50 MG/ML 1 ML VIAL IVP PRN (13:08)
[2024-12-24] MEDS: ACETAMINOPHEN TAB 500 MG TAB PO SCH (15:36)
[2024-12-24] MEDS: LACTATED RINGERS 1,000 ML IV SCH (15:39)
[2024-12-24] MEDS: KETOROLAC 15 MG/ML 1 ML VIAL IVP SCH (20:27)
[2024-12-24] MEDS: SENNOSIDES-DOCUSATE SODIUM 1 EACH TAB PO SCH (20:28)
[2024-12-25] MEDS ORDERED: NALBUPHINE 10 MG/ML (10 ML MDV) IM PRN (03:13)
[2024-12-25 06:33] LABS: Basophils % (A) 0 %; Eosinophils # (A) 0.2 k/uL (0-0.7); Eosinophils % (A) 2 %; HCT 33.8 % (34.0-46.0); HGB 10.4 gm/dL (11.4-16.0); Hypochromasia Slight; Lymphocytes # (A) 1.9 k/uL (1.0-4.8); Lymphocytes % (A) 19 %; MCH 27.7 pg (25.0-35.0); MCHC 30.7 g/dL (31.0-37.0); MCV 90.1 fL (80.0-100.0); Mean Platelet Volume 7.7; Monocytes # (A) 0.5 k/uL (0-1.0); Monocytes % (A) 5 %; Neutrophils # (A) 7.4 k/uL (1.3-7.7); Neutrophils % (A) 72 %; Platelet Count 260 k/uL (150-450); RBC 3.75 m/uL (3.80-5.40); RDW 15.6 % (11.5-15.5); WBC 10.2 k/uL (3.8-10.6)
--- NOTE | 2024-12-25 11:56 | P.PN ---
Progress Note - Text 12/25/24 622am -year-old female status post with spinal Duramorph. Patient seen and evaluated for pain control, she has a VAS of 4 with complaints of pruritus which had to be treated with Nubain and Benadryl yesterday feels a lot better today
[2024-12-25] MEDS ORDERED: traZODone HCL 50 MG TAB PO PRN (14:30)
[2024-12-25] MEDS ORDERED: hydrOXYzine pamoate 25 MG CAP PO PRN (14:30)
--- NOTE | 2024-12-25 14:33 | P.CN ---
Psychiatric Consult - . Consult date: 12/25/24 Consult:: 12/25/24 13:38 IDENTIFYING DATA: Patient is a 19-year-old female currently has 3 kids, lives with her friend, she is unemployed, single HPI: Patient was seen today for psychiatric consultation for review of psychiatric history and starting psychiatric medications. Patient came into the hospital on 12/24 for a yesterday. Patient had a urine drug screen positive for THC. Patient was admitted for further observation, senior copywriter attempted to see patient at the bedside today alone. She claims that the C- section went rather well, claims that she feels less stressed now that the baby is born. Patient claims that she had no significant issues except for feeling "itchy" from a medication she received yesterday. Claims that that has resolved today, is complaining of a mild headache. Claims that her mood has been fair lately, denies any mood swings irritability or agitation. Not reporting any paranoia or delusions. Claims that she had to stop taking her medications about 9 or 10 months ago due to being , claims that she tried to remain just on Lexapro however that was giving her issues and stopped that shortly afterwards. Reporting very mild anxiety at this time. Claims that her sleep has been on and off, appetite has been fair. She appears to have fairly good insight into her condition, claims that she wants to be restarted back on some of her medications for her psychiatric symptoms. Also claims that she will be planning to follow-up with her nurse practitioner at [facility] within the next week or so. At this time she is denying any auditory or visual hallucinations denying any suicidal homicidal ideations intent or plan. Claims that she has been smoking marijuana on on and off occasionally, also claims that she vapes nicotine regularly. PAST PSYCHIATRIC HISTORY: Patient states that she has a history of anxiety and a mood disorder, borderline personality disorder. Patient has been on several different medications in the past including trazadone, visteral, invega and lexapro, Seroquel, lithium. She has stopped her medications for about 9 or 10 months now. She states that her last psychiatric admission was in May 2020 for. Patient goes to [facility] for psychiatric outpatient follow-up. Claims that she has previous suicide attempts one where she held a knife to her throat and also a previous time when she overdosed. PMH: Past Medical History: No Reported History History of Any Multi-Drug Resistant Organisms: None Reported Past Surgical History: Section Additional Past Surgical History / Comment(s): Hx 2 c-sections Past Anesthesia/Blood Transfusion Reactions: No Reported Reaction Past Psychological History: Anxiety, Depression Smoking Status: Current every day smoker, Vaper ALLERGIES: as per EMR CHEMICAL DEPENDENCY HISTORY: as per HPI FAMILY PSYCHIATRIC/SUBSTANCE USE HISTORY: several family members have mental health problems SOCIAL HISTORY: Patient was born and raised in [facility], she claims that she completed her GED, she is currently unemployed. States that she has 3 kids, lives with a friend in a house She states that she is not having any legal history. MENTAL STATUS EXAM: General Appearance: Patient appears to be have red hair, stated age is alert, directable, and attempts to cooperate. fair eye contact. Patient appears to have fair hygiene and grooming. Colored hair Behavior: Patient is seated without any agitated behavior. Timid. Fairly p leasant Speech: Patient's speech is fluent and nonpressured. Soft tone. Guarded at times Mood/Affect: Patient reports their mood is a little bit anxious, affect is congruent and constricted. Suicidality/Homicidality: Patient denies having any homicidal ideation intent or plan. Denies any suicidal ideations intent or plan Perceptions: Patient denies any visual hallucinations and denies any auditory hallucinations. Though content/process: There is no evidence of any delusional thought content and thought process is linear and goal-directed. Memory and concentration: AOX3, grossly intact for the purposes of this session Judgment and insight: Fair IMPRESSIONS: borderline personality disorder PTSD nicotine dependance cannabis use disorder PLAN: -At this time patient DOES NOT meet criteria for inpatient psychiatric admission. -Would recommend the following medication changes/additions: Start Lithobid 450 mg daily for mood stabilization (patient states that she is not going to be b reastfeeding), lexapro 10 mg daily, seroquel 50 mg qhs for mood stabilization/sleep, trazodone 50 mg qhs prn for sleep. ambika duvalrn for anxiety. -flat screen worker to provide patient with outpatient mental health/psychiatry resources for appropriate follow up upon discharge. Patient will be trying to follow-up with [facility] within the next 1 to 2 weeks for mental health follow-up. -Director [facility] spoke with patient about substance abuse and the harmful effects on medical and mental health, patient verbally understood and agreed. -Communicated plan to patient's nurse -Psychiatry will sign off at this time -Please contact with any questions. 12/25/24 14:23 12/25/24 14:27 12/25/24 14:31
[2024-12-25] MEDS: IBUPROFEN 800 MG TAB PO SCH (15:09)
[2024-12-25] MEDS: LITHIUM CARBONATE ER 450 MG TABLET.ER PO SCH (15:09)
[2024-12-25] MEDS: ESCITALOPRAM 5 MG TAB PO STA (15:09)
[2024-12-25] MEDS: diphenhydrAMINE 50 MG CAP PO PRN (17:37)
[2024-12-25 18:37] VITALS: RESP 16
[2024-12-25] MEDS: QUEtiapine 50 MG TAB PO SCH (21:19)
[2024-12-25] MEDS: SIMETHICONE 80 MG CHEWABLE PO PRN (23:10)
--- NOTE | 2024-12-26 08:17 | P.PNOBGPC ---
Subjective - Subjective Principal diagnosis: S/P RLTCS POD #1 Interval history: Patient seen and examined. Denies nausea, vomiting, chest pain, shortness of breath or calf pain. Patient reports: Reports appetite normal, Reports voiding normally, Reports pain well controlled, Reports ambulating normally : doing well Objective - Vital Signs Latest vital signs: Vital Signs Temp Pulse Resp BP Pulse Ox 12/26/24 00:00 16 12/25/24 23:32 98.2 F 60 16 133/75 97 12/25/24 16:00 97.6 F 81 16 128/74 100 12/25/24 09:45 97.6 F 66 14 99/56 Intake and Output 12/25/24 12/26/24 12/26/24 22:59 06:59 14:59 Intake Total 960 480 Balance 960 480 Intake: Oral 960 480 Other: # Voids 2 2 # Bowel Movements 2 - Exam Lungs: bilateral: normal Chest: Normal S1, Normal S2 Extremities: Present: normal Abdomen: Present: normal appearance, soft. Absent: distention, tenderness Incision: Present: normal, dry, intact Uterus: Present: normal, firm Assessment and Plan (1) Borderline personality disorder Current Visit: No Status: Acute Priority: High Code(s): F60.3 - BORDERLINE PERSONALITY DISORDER SNOMED Code(s): 08122033 (2) Cannabis use disorder Current Visit: No Status: Acute Priority: Medium Code(s): F12.90 - CANNABIS USE, UNSPECIFIED, UNCOMPLICATED SNOMED Code(s): 50216736 (3) Depression Current Visit: No Status: Acute Code(s): F32.A - DEPRESSION, UNSPECIFIED SNOMED Code(s): 89400444 (4) 39 weeks gestation of Current Visit: No Status: Resolved Code(s): Z3A.39 - 39 WEEKS GESTATION OF SNOMED Code(s): 93759297 (5) Previous section Current Visit: No Status: Resolved Code(s): Z98.891 - HISTORY OF UTERINE SCAR FROM PREVIOUS SURGERY SNOMED Code(s): 390820337 Plan: Increase ambulation 2. Regular diet
--- NOTE | 2024-12-26 08:18 | P.PNOBGPC ---
Subjective - Subjective Principal diagnosis: Repeat low-transverse postop day 2 Interval history: Patient seen and examined. She is tired and having a hard time getting up and moving around. Pain is being controlled with Motrin and Tylenol. Patient reports: Reports appetite normal, Reports voiding normally, Reports pain well controlled, Reports ambulating normally : doing well Objective - Vital Signs Latest vital signs: Vital Signs Temp Pulse Resp BP Pulse Ox 12/26/24 00:00 16 12/25/24 23:32 98.2 F 60 16 133/75 97 12/25/24 16:00 97.6 F 81 16 128/74 100 12/25/24 09:45 97.6 F 66 14 99/56 Intake and Output 12/25/24 12/26/24 12/26/24 22:59 06:59 14:59 Intake Total 960 480 Balance 960 480 Intake: Oral 960 480 Other: # Voids 2 2 # Bowel Movements 2 - Exam Lungs: bilateral: normal Chest: Normal S1, Normal S2 Extremities: Present: normal Abdomen: Present: normal appearance, soft. Absent: distention, tenderness Incision: Present: normal, dry, intact Uterus: Present: normal, firm Assessment and Plan (1) Borderline personality disorder Current Visit: No Status: Acute Priority: High Code(s): F60.3 - BORDERLINE PERSONALITY DISORDER SNOMED Code(s): 37955624 (2) Cannabis use disorder Current Visit: No Status: Acute Priority: Medium Code(s): F12.90 - CANNABIS USE, UNSPECIFIED, UNCOMPLICATED SNOMED Code(s): 58450258 (3) Depression Current Visit: No Status: Acute Code(s): F32.A - DEPRESSION, UNSPECIFIED SNOMED Code(s): 95165413 (4) 39 weeks gestation of Current Visit: No Status: Resolved Code(s): Z3A.39 - 39 WEEKS GESTATION OF SNOMED Code(s): 27771254 (5) Previous section Current Visit: No Status: Resolved Code(s): Z98.891 - HISTORY OF UTERINE SCAR FROM PREVIOUS SURGERY SNOMED Code(s): 093963189 Plan: 1. Continue postop care
[2024-12-26] MEDS: ESCITALOPRAM 10 MG TAB PO SCH (09:27)
[2024-12-26] MEDS ORDERED: hydrOXYzine pamoate 25 MG CAP PO PRN (13:12)
--- NOTE | 2024-12-26 13:17 | P.PN ---
Progress Note - Text Progress Note Date: 12/26/24 Interval history: Patient was seen today by film writer for psychiatric follow-up at the request of [facility] physician due to her report of a "change in mood" and also increased anger and apparently not wanting to touch the baby. Patient was seen yesterday and restarted back on some of her home medications which she has been off of for several months. Patient was seen at the bedside today after speaking with nurse. Patient's nurse states that patient has been claiming that her mood has been changing she feels angry at times, not really feeling motivated to take care of her baby, struggling with not knowing who the father is at this time. Patient was seen today once again in the room, her 2 friends were excused from the room. Patient continues to appear to be fairly calm and cooperative. She did claim that yesterday she was feeling a bit angry and then felt depressed. Claims that she is doing a little bit better at this time however after she had to take a shower. Claims that she is angry at herself for not wanting to hold or take care of her child. She did speak more about not knowing who the father was and wanted to do genetic testing. She states that she is thankful for her friends helping her out. She was a bit tearful during conversation, feels down about herself and her motivation. She was agreeable to have her medications adjusted for today, claims that she is not having thoughts of harming herself or harming the child, denies any auditory or visual hallucinations. Claims that her sleep was poor last night and she did not go to sleep until "6:00 in the morning". Has been attempting to eat. MENTAL STATUS EXAM: General Appearance: Patient appears to be have red hair, stated age is alert, directable, and attempts to cooperate. fair eye contact. Patient appears to have fair hygiene and grooming. Colored hair Behavior: Patient is seated without any agitated behavior. Timid. Fairly pleasant, a bit constricted Speech: Patient's speech is fluent and nonpressured. Soft tone. Guarded at times Mood/Affect: Patient reports their mood is a little bit anxious, affect is congruent and constricted. Mildly tearful at times Suicidality/Homicidality: Patient denies having any homicidal ideation intent or plan. Denies any suicidal ideations intent or plan Perceptions: Patient denies any visual hallucinations and denies any auditory hallucinations. Though content/process: There is no evidence of any delusional thought content and thought process is linear and goal-directed. Somewhat concrete Memory and concentration: AOX3, grossly intact for the purposes of this session Judgment and insight: Fair IMPRESSIONS: borderline personality disorder PTSD nicotine dependance cannabis use disorder PLAN: -At this time patient DOES NOT meet criteria for inpatient psychiatric admission however due to patient's current situation and symptoms, will monitor overnight and assess her tomorrow to see if she does meet criteria for inpatient psychiatric hospitalization or can be safely discharged home. -Would recommend the following medication changes/additions: Lithobid 450 mg daily for mood stabilization (patient states that she is not going to be ), lexapro 10 mg daily, increase seroquel 75 mg qhs +25 mg daily for mood stabilization/sleep, trazodone 50 mg qhs prn for sleep. vistaril 50 mg q8hr prn for anxiety. Patient was reminded that she has trazodone to help her with sleep if needed. -spring floor service worker to provide patient with outpatient mental health/psychiatry resources for appropriate follow up upon discharge. Patient will be trying to follow-up with [facility] within the next 1 to 2 weeks for mental health follow-up. -Communicated plan to patient's nurse -Psychiatry will follow up on patient tomorrow -Please contact with any questions.
[2024-12-26] MEDS: QUEtiapine 25 MG TAB PO SCH ×2 (13:45→20:52)
--- NOTE | 2024-12-27 07:39 | P.PNOBGPC ---
Subjective - Subjective Principal diagnosis: S/P RLTCS POD #3 Interval history: Patient seen and examined. He is in better spirits today, her headache from yesterday is only a 1-2 out of 10 now. I saw her feeding and burping the baby appropriately this morning. She denies wanting to harm herself or anyone else. Her pain is well-controlled, denies nausea, vomiting, chest pain, shortness of breath or calf pain. From a obstetric standpoint patient could be discharged home, I will wait for psych to let me know if she needs outpatient services or inpatient services. Patient reports: Reports appetite normal, Reports voiding normally, Reports pain well controlled, Reports ambulating normally : doing well Objective - Vital Signs Latest vital signs: Vital Signs Temp Pulse Resp BP Pulse Ox 12/27/24 00:00 97.7 F 73 16 135/80 98 12/26/24 16:00 98.2 F 68 16 126/72 99 12/26/24 08:00 98.6 F 70 16 106/58 98 Intake and Output 12/26/24 12/27/24 12/27/24 22:59 06:59 14:59 Other: Voiding Method Toilet # Voids 2 2 - Exam Lungs: bilateral: normal Chest: Normal S1, Normal S2 Extremities: Present: normal Abdomen: Present: normal appearance, soft. Absent: distention, tenderness Incision: Present: normal, dry, intact Uterus: Present: normal, firm Assessment and Plan (1) Borderline personality disorder Current Visit: No Status: Acute Priority: High Code(s): F60.3 - BORDERLINE PERSONALITY DISORDER SNOMED Code(s): 48947356 (2) Cannabis use disorder Current Visit: No Status: Acute Priority: Medium Code(s): F12.90 - CANNABIS USE, UNSPECIFIED, UNCOMPLICATED SNOMED Code(s): 60454444 (3) Depression Current Visit: No Status: Acute Code(s): F32.A - DEPRESSION, UNSPECIFIED SNOMED Code(s): 24167010 (4) 39 weeks gestation of Current Visit: No Status: Resolved Code(s): Z3A.39 - 39 WEEKS GESTATION OF SNOMED Code(s): 07927684 (5) Previous section Current Visit: No Status: Resolved Code(s): Z98.891 - HISTORY OF UTERINE SCAR FROM PREVIOUS SURGERY SNOMED Code(s): 775891036 Plan: 1. cont po care 2. possible discharge later today
[2024-12-27 09:44] VITALS: BP 137/82; PULSE 54; TEMP 98.1
--- NOTE | 2024-12-27 14:03 | P.PN ---
Progress Note - Text Progress Note Date: 12/27/24 Interval history: Patient was seen today by information writer for psychiatric follow-up. Patient was seen interacting with her baby today and also had her friend helping her. Nurse claims that patient has been doing better today not reporting any issues with mood or anxiety and has been interacting more with her child. Patient was agreed to speak to information writer alone today. She claims that she is feeling more positive today, endorsing future orientation speaking about wanting to take care of her children, be a better mother, stay with her sister and also her mother for more help. She states that she wants to live for her children and to be a good mother. Claims that she feels more optimistic today, denies any depression or anxiety denies any mood swings or irritability. She states that she was able to sleep about 4 or 5 hours last night, does not want to feel oversedated due to caring for the baby. She claims that she has been eating, she is denying any suicidal homicidal ideations intent or plan denying any homicidal ideations today. Denies any auditory or visual hallucinations. Not reporting any side effects on the medications. MENTAL STATUS EXAM: General Appearance: Patient appears to be have red hair, stated age is alert, directable, and attempts to cooperate. fair eye contact. Patient appears to have fair hygiene and grooming. Colored hair Behavior: Patient is seated without any agitated behavior. Fairly pleasant today Speech: Patient's speech is fluent and nonpressured. Mood/Affect: Patient reports their mood is improving, affect is congruent Suicidality/Homicidality: Patient denies having any homicidal ideation intent or plan. Denies any suicidal ideations intent or plan Perceptions: Patient denies any visual hallucinations and denies any auditory hallucinations. Though content/process: There is no evidence of any delusional thought content and thought process is linear and goal-directed. More future oriented Memory and concentration: AOX3, grossly intact for the purposes of this session Judgment and insight: Fair IMPRESSIONS: borderline personality disorder PTSD nicotine dependance cannabis use disorder PLAN: -At this time patient DOES NOT meet criteria for inpatient psychiatric admission -Would recommend the following medication changes/additions: Lithobid 450 mg daily for mood stabilization (patient states that she is not going to be ), lexapro 10 mg daily, seroquel 75 mg qhs +25 mg daily for mood stabilization/sleep, decrease trazodone 25-50 mg qhs prn for sleep. vistaril daily prn for anxiety. -Patient can follow-up with [facility] for mental health, next appointment is on 01/08 and also has an appointment on 01/18. -Communicated plan to patient's nurse -Psychiatry will sign off at this time -Please contact with any questions.
== END 2024-12-27 14:19 | disposition home or self-care (01) | DRG 540 ==
LOC: 4FBP 08:18
PROVIDERS: ADMIT Obstetrics & Gynecology; ATTEND Obstetrics & Gynecology
PROC: 10D00Z1 Extraction of Products of Conception, Low, Open Approach (ICD-10-PCS; principal; 2024-12-24 10:00)
DX: O34.211 Maternal care for low transverse scar from previous cesarean delivery (principal); F60.3 Borderline personality disorder; F43.10 Post-traumatic stress disorder, unspecified; F41.9 Anxiety disorder, unspecified; F32.A Depression, unspecified; F12.10 Cannabis abuse, uncomplicated; F17.290 Nicotine dependence, other tobacco product, uncomplicated; O99.324 Drug use complicating childbirth; O99.334 Smoking (tobacco) complicating childbirth; O99.344 Other mental disorders complicating childbirth; Z37.0 Single live birth; Z3A.39 39 weeks gestation of pregnancy; Z56.0 Unemployment, unspecified; Z91.51 Personal history of suicidal behavior
CPT/HCPCS: 80306; 85025; 86850; 86900; 86901